=== PATIENT | female | born 2000 | race Two or more races ===

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

== ENCOUNTER 2019-02-10 09:52 | Emergency (ER) | payer MEDICAID ==
[~2019-02-10] VITALS: Ht 157.5 cm; Wt 81.6 kg
[2019-02-10 12:32] VITALS: BP 117/76
[2019-02-10] MEDS ORDERED: IBUPROFEN 800 MG TAB PO ONE (12:45)
== END 2019-02-10 13:07 | disposition home or self-care (01) ==
LOC: ER 09:59
DX: S80.02XD Contusion of left knee, subsequent encounter (principal); W18.39XD Other fall on same level, subsequent encounter
CPT/HCPCS: 73562; 81025

== ENCOUNTER 2024-06-22 14:25 | Emergency (ER) | payer MEDICAID ==
[~2024-06-22] VITALS: Ht 157.5 cm; Wt 92.9 kg
--- NOTE | 2024-06-22 15:19 | ECG ---
[facility] Test Date: 2024-06-22 Test Time: 15:09:53 Pat Name: AMANDA BALL Department: ER Room: Gender: F Non Destructive Evaluation Specialist: GP : 2000 Requested By: LUCAS MCCARTNEY Order Number: [id number] Reading MD: Radu Tanner Measurements Intervals [place] Rate: 92 P: 28 [place]: 141 QRS: -4 QRSD: 91 T: 29 QT: 334 QTc: 414 Interpretive Statements Sinus rhythm Low voltage, precordial leads Electronically Signed On 06-22-2024 16:44:12 PST by Radu Tanner Please click the below link to view image of tracing.
[2024-06-22 15:40] LABS: Urine Bacteria None Seen /hpf (None Seen)
--- NOTE | 2024-06-22 16:07 | DVH ---
EXAM: CT HEAD WITHOUT CONTRAST INDICATION: syncope TECHNIQUE: CT of the head without intravenous contrast. Coronal and sagittal reformatted images are submitted. Radiation Dose : 1. Head: CT Dose: CTDI volume is 59.74 mGy. Dose-length product is 1057.45 mGy*cm The dose indicators for CT are the volume Computed Tomography (CT) Dose Index (CTDIvol) and the Dose Length Product (DLP), and are measured in units of mGy and mGy-cm, respectively. These indicators are not patient dose, but values generated from the CT scanner acquisition factors. The report includes radiation exposure data for exposures received during this examination. All CT scans at this medical facility are performed using dose modulation techniques as appropriate to a performed exam including the following: Automated exposure control was utilized; adjustment of the MA and/or KV according to patient size; and use of iterative reconstruction technique. COMPARISON: None FINDINGS: There is no evidence of acute intracranial hemorrhage, extra-axial collection, mass effect, midline s hift, herniation or hydrocephalus. The ventricles, sulci and cisterns are age appropriate. The roe-white differentiation is intact. The visualized paranasal sinuses and mastoid air cells are clear. No depressed calvarial fracture. The surrounding soft tissues are unremarkable. IMPRESSION: 1. No evidence of acute intracranial abnormality.
[2024-06-22 16:09] LABS: Urine Blood Negative /uL (Negative); Urine Clarity Clear (Clear); Urine Color Light-Yellow (Yellow); Urine Mucus FEW (None Seen); Urine Protein, UAD Negative (Negative); Urine Specific Gravity 1.017 (1.001-1.035); Urine Squamous Epithelial Cell FEW /hpf (<5); Urine Urobilinogen Normal (Negative); Urine WBC 1 /hpf (0 - 5)
--- NOTE | 2024-06-22 16:32 | ED.PDOC ---
History of Present Illness HPI Comments 23 year old female states she was syncopal episode at 5:00 a.m. today. States she got up to go the bathroom when she was in the bathroom she was not remember what happened, she woke up with swelling to her nose and left-sided face. Says she was had syncopal episode in the past, he was five years ago she went and saw a neurologist and he was told he was a vasovagal response. Patient denies any chest pain no shortness a breath denies any headaches. Chief Complaint: Syncope Time Seen by MD: 15:31 Primary Care Provider: PATRICE Reviewed Notes: Nurses Notes Allergies: Coded Allergies: NO KNOWN ALLERGIES (Unverified , 02/02/13) Information Source: Patient Mode of Arrival: Ambulatory Past Medical History PAST MEDICAL HISTORY: Asthma Surgical History: Denies all surgeries TELEPHONE INFORMATION SUPERVISOR History: No Pertinent TELEPHONE INFORMATION SUPERVISOR History Family History Family History: Unknown Social History Smoker: Non-Smoker Alcohol: Occasionally Drugs: Denies Drug Use Lives In: Home Constitutional: denies: chills, diaphoresis, fatigue, fever, malaise, sweats, weakness, others EENTM: denies: blurred vision, double vision, ear bleeding, ear discharge, ear drainage, ear pain, ear ringing, eye pain, eye redness, hearing loss, mouth pain, mouth swelling, nasal discharge, nose bleeding, nose congestion, nose pain, photophobia, tearing, throat pain, throat swelling, voice changes, others Respiratory: denies: cough, hemoptysis, orthopnea, SOB at rest, shortness of breath, SOB with excertion, stridor, wheezing, others Cardiovascular: reports: syncope; denies: chest pain, dizzy spells, diaphoresis, Dyspnea on exertion, edema, irregular heart beat, left arm pain, lightheadedness, palpitations, PND, others Gastrointestinal: denies: abdomen distended, abdominal pain, blood streaked bowels, constipated, diarrhea, dysphagia, difficulty swallowing, hematemesis, melena, nausea, poor appetite, poor fluid intake, rectal bleeding, rectal pain, vomiting, others Genitourinary: denies: abnormal vagina bleeding, burning, dyspareunia, dysuria, flank pain, frequency, hematuria, incontinence, pain, , vagina discharge, urgency, others Neurological: denies: dizziness, fainting, headache, left sided numbness, left sided weakness, numbness, paresthesia, pre-existing deficit, right sided numbness, right sided weakness, seizure, speech problems, tingling, tremors, weakness, others Musculoskeletal: denies: back pain, gout, joint pain, joint swelling, muscle pain, muscle stiffness, neck pain, others Integumetry: denies: bruises, change in color, change in hair/nails, dryness, laceration, lesions, lumps, rash, wounds, others Allergic/Immunocompromised: denies: Difficulty Healing, Frequent Infections, Hives, Itching, others Physical Exam General Appearance: No Apparent Distress, Normal HEENT: Other (Bruising noted at the top of the nasal bridge, no deformity. Patent nares) Neck: Full Range of Motion, Non-Tender, Normal, Normal Inspection Respiratory: Chest Non-Tender, Lungs Clear, No Accessory Muscle Use, No Respiratory Distress, Normal Breath Sounds Cardiovascular: No Edema, No JVD, No Murmur, No Gallop, Normal Peripheral Pulses, Regular Rate/Rhythm Breast Exam: Deferred Gastrointestinal: No Organomegaly, Non Tender, No Pulsatile Mass, Normal Bowel Sounds, Soft Genitalia: Deferred Pelvic: Deferred Rectal: Deferred Extremities: No calf tenderness, Normal capillary refill, Normal inspection, Normal range of motion, Non-tender, No pedal edema Musculoskeletal : Apperance: Normal Neurologic: Alert, lead caregiver II-XII nml as Tested, No Motor Deficits, Normal Affect, Normal Mood, No Sensory Deficits Cerebellar Function: Normal Reflexes: Normal Skin: Dry, Normal Color, Warm Lymphatic: No Adenopathy Was a procedure done? Was a procedure done?: No Differential Dx Considerations may include: TBI, closed head injury, syncopal episode, stroke X-Ray, Labs, Meds, VS Vital Signs Date Time Temp Pulse Resp B/P (MAP) Pulse Ox O2 Delivery O2 Flow Rate FiO2 06/22/24 15:09 92 06/22/24 15:08 98.0 90 15 120/78 (92) 99 Lab Test 06/22/24 15:06 06/22/24 14:45 Range/Units POC Glucose 122 H 70-106 mg/dl Urine Color Light-yellow Yellow Urine Clarity Clear Clear Urine pH 6.0 5.0-9.0 Urine Specific [place] 1.017 1.001-1.035 Urine Protein Negative Negative Urine Ketones Negative Negative Urine Blood Negative Negative /uL Urine Nitrite Negative Negative Urine Bilirubin Negative Negative Urine Urobilinogen Normal Negative mg/dL Urine Leukocyte Esterase Trace Negative /uL Urine RBC 1 0 - 4 /hpf Urine WBC 1 0 - 5 /hpf Urine Squamous Epithelial Cells Few <5 /hpf Urine Bacteria None seen None Seen /hpf Urine Mucus Few None Seen Urine Glucose Normal Normal mg/dL Urine Test Negative Negative X-Ray, Labs, Meds, VS Comment Imaging: X-rays and CT scans were reviewed and interpreted by this provider, cassie garcia shows no fractures and no pathological disease. Pending radiology review. Laboratory: Labs reviewed and interpreted by this provider. No significant abnormalities noted. Patient has prior medical visits reviewed. Med reconciliation performed Vital signs reviewed Time of 1ST Reevaluation: 16:31 Reevaluation 1ST: Improved Patient Education/Counseling: Diagnosis, Treatment, Need For Follow Up (Follow up with the PCP in the next 3-5 days. Follow up in the emergency department if symptoms worsen in the next 24 hours) Family Education/Counseling: No Family Present Departure 1 Departure Time of Disposition: 16:31 Impression: Primary Impression: Vasovagal syncope Disposition: 01 HOME / SELF CARE / HOMELESS Condition: Fair Discharged With: Self Critical Care Note Critical Care Time?: No Stability Stability form required: No Heart Score Heart Score: Heart Score Response (Comments) Value History N/A 0 EKG N/A 0 Age N/A 0 Risk Factors N/A 0 Troponin N/A 0 Total 0 PA RODRIGUEZ Jun 22, 2024 16:32
[2024-06-22 17:32] VITALS: BP 128/72; PULSE 76; RESP 16; TEMP 98.1; O2SAT 98
== END 2024-06-22 17:35 | disposition home or self-care (01) ==
LOC: ER 14:25
DX: R55 Syncope and collapse (principal); J45.909 Unspecified asthma, uncomplicated; Z32.02 Encounter for pregnancy test, result negative
CPT/HCPCS: 70450; 81001; 81025; 82962; 93005

== ENCOUNTER 2024-11-24 14:42 | Inpatient (IN) | payer BC, MEDICAID ==
[~2024-11-24] VITALS: Ht 157.5 cm; Wt 95.6 kg
--- NOTE | 2024-11-24 15:06 | ED.PDOC ---
History of Present Illness HPI Comments 24-year-old female brought in by mother for evaluation of a syncopal episode that occurred last night while using the restroom, associated with nausea, vomiting, subjective fever and chills. Patient states all symptoms started more or less at the same time. She states she experienced some visual distortion j ust prior to fainting. She states she collapsed and hit the left side of her head on the bathroom floor. It is unclear how long she was unconscious, as she was alone. On awakening, she was feeling a severe headache, neck soreness, but denies any other injuries from the fall other than mild bilateral knee discomfort. She states she has been able to ambulate since the episode, however is experiencing body aches and abdominal soreness for multiple episodes of vomiting. She denies any fever, upper respiratory symptoms, sick contacts at home, dysuria, constipation or diarrhea. She states she has had syncopal e pisodes in the past that she was told may have been vasovagal episodes, however this episode seemed different in the she experienced visual distortion prior to fainting. Chief Complaint: Syncope Time Seen by MD: 15:00 Primary Care Provider: VICTORIA Reviewed Notes: Nurses Notes, Medications, Allergies Allergies: Coded Allergies: NO KNOWN ALLERGIES (Unverified , 02/02/13) Home Meds Reported Medications Budesonide (Inhalation) (Budesonide) 0.25 Mg/2 Ml [place], IN BID, ML 11/25/24 Albuterol Sulfate (Albuterol Sulfate Hfa) 108 Mcg/Act Aer, 108 MCG IN PRN, AER 11/25/24 Information Source: Patient, Relative (Mother) Mode of Arrival: Ambulatory Severity: Moderate Timing: Hours Duration: Since onset, Hours Prehospital treatment: None Past Medical History PAST MEDICAL HISTORY: Asthma Surgical History: Denies all surgeries EMERGENCY VETERINARY TECHNICIAN History: No Pertinent EMERGENCY VETERINARY TECHNICIAN History Family History Family History: Reviewed,noncontributory to illness Social History Smoker: Non-Smoker Drugs: Denies Drug Use Lives In: Home Constitutional: reports: weakness, others (leg cramping, sweating, hot/cold flashes, visual distortion); denies: chills, diaphoresis, fatigue, fever, malaise, sweats EENTM: denies: blurred vision, double vision, ear bleeding, ear discharge, ear drainage, ear pain, ear ringing, eye pain, eye redness, hearing loss, mouth pain, mouth swelling, nasal discharge, nose bleeding, nose congestion, nose pain, photophobia, tearing, throat pain, throat swelling, voice changes, others Respiratory: denies: cough, hemoptysis, orthopnea, SOB at rest, shortness of breath, SOB with excertion, stridor, wheezing, others Cardiovascular: reports: syncope; denies: chest pain, dizzy spells, di aphoresis, Dyspnea on exertion, edema, irregular heart beat, left arm pain, lightheadedness, palpitations, PND, others Gastrointestinal: reports: nausea, vomiting; denies: abdomen distended, a bdominal pain, blood streaked bowels, constipated, diarrhea, dysphagia, difficulty swallowing, hematemesis, melena, poor appetite, poor fluid intake, rectal bleeding, rectal pain, others Genitourinary: denies: abnormal vagina bleeding, burning, dyspareunia, dysuria, flank pain, frequency, hematuria, incontinence, pain, , vagina discharge, urgency, others Neurological: denies: dizziness, fainting, headache, left sided numbness, left sided weakness, numbness, paresthesia, pre-existing deficit, right sided numbness, right sided weakness, seizure, speech problems, tingling, tremors, we akness, others Musculoskeletal: reports: neck pain; denies: back pain, gout, joint pain, joint swelling, muscle pain, muscle stiffness, others Integumetry: denies: bruises, change in color, change in hair/nails, dryness, laceration, lesions, lumps, rash, wounds, others Allergic/Immunocompromised: denies: Difficulty Healing, Frequent Infections, Hives, Itching, others Hematologic/Lymphatic: denies: anemia, blood clots, easy bleeding, easy bruising, swollen glands, others Endocrine: denies: excessive hunger, excessive sweating, excessive thirst, excessive urination, flushing, intolerance to cold, intolerance to heat, unexplained weight gain, unexplained weight loss, others Psychiatric: denies: anxiety, bipolar disorder, depression, hopeless, panic disorder, schizophrenia, sleepless, suicidal, others All Other Systems: Reviewed and Negative Physical Exam General Appearance: No Apparent Distress HEENT: Other (Pupils and face symmetric. Moist mucous membranes. Left temporal soft tissue tenderness and mild bruising.) Neck: Full Range of Motion, Normal Inspection, Supple, Other (Midline and paraspinal soft tissue tenderness to palpation) Respiratory: No Accessory Muscle Use, No Respiratory Distress Cardiovascular: No Edema, No JVD, Tachycardia Breast Exam: Deferred Gastrointestinal: Non Tender, Soft Genitalia: Deferred Pelvic: Deferred Rectal: Deferred Extremities: Normal inspection, Normal range of motion, Non-tender, No pedal edema Neurologic: Alert (Oriented x4), Normal Affect, Normal Mood, Other (Ambulatory) Cerebellar Function: NOT DONE Reflexes: NOT DONE Skin: Dry, Normal Color, Warm Lymphatic: NOT DONE Was a procedure done? Was a procedure done?: No EKG EKG : Comments Sinus tach, rate 107, normal intervals, borderline left axis deviation, normal QRS, nonspecific T change. Differential Dx Considerations may include: Vasovagal syncope, concussion, skull fracture, C-spine fracture, ICH, TIA, hypovolemia/dehydration, electrolyte imbalance, viral syndrome, gastroenteritis, gastritis, pancreatitis, UTI, sepsis, arrhythmia, [place], among others X-Ray, Labs, Meds, VS Vital Signs Date Time Temp Pulse Resp B/P (MAP) Pulse Ox O2 Delivery O2 Flow Rate FiO2 11/24/24 17:01 110 18 110/74 11/24/24 16:31 110 18 110/74 11/24/24 16:15 110 18 98 Room Air* 0 21 11/24/24 16:15 98.1 110 18 110/74 (86) 97 98.1 11/24/24 15:05 107 11/24/24 14:42 97.5 120 16 135/80 (98) 98 97.5 Lab Test 11/24/24 16:28 11/24/24 16:15 11/24/24 15:25 11/24/24 15:10 Range/Units Troponin I High Sensitivity 16 13 </=34 ng/L Influenza Type A Antigen Negative Negative Influenza Type B Antigen Negative Negative White Blood Count 5.9 4.4-10.8 10^3/uL Red Blood Count 5.69 H 4.0-5.20 10^6/uL Hemoglobin 16.4 H 12.2-16.2 g/dL Hematocrit 47.8 H 36.0-46.0 % Mean Corpuscular Volume 84.0 80.0-100.0 fL Mean Corpuscular Hemoglobin 28.8 28.0-32.0 pg Mean Corpuscular Hemoglobin Concent 34.3 32.0-36.0 g/dL Red Cell Distribution Width 14.1 11.8-14.3 % Platelet Count 419 140-450 10^3/uL Mean Platelet Volume 7.9 6.9-10.8 fL Neutrophils (%) (Auto) 53.8 37.0-80.0 % Lymphocytes (%) (Auto) 33.7 10.0-50.0 % Monocytes (%) (Auto) 9.9 0.0-12.0 % Eosinophils (%) (Auto) 2.1 0.0-7.0 % Basophils (%) (Auto) 0.5 0.0-2.0 % Neutrophils # (Auto) 3.2 1.6-8.6 10 ^3/uL Lymphocytes # (Auto) 2.0 0.4-5.4 10 ^3/uL Monocytes # (Auto) 0.6 0-1.3 10 ^3/uL Eosinophils # (Auto) 0.1 0-0.8 10 ^3/uL Basophils # (Auto) 0 0-0.2 10 ^3/uL Nucleated Red Blood Cells 0.2 % Sodium Level 141 136-145 mmol/L Potassium Level 4.2 3.5-5.1 mmol/L Chloride Level 106 98-107 mmol/L Carbon Dioxide Level 26 20-31 mmol/L Anion Gap 9 5-15 Blood Urea Nitrogen 11 9-23 mg/dL Creatinine 0.75 0.550-1.02 mg/dL Glomerular Filtration Rate Calc 113 >90 mL/min BUN/Creatinine Ratio 14.7 10.0-20.0 Serum Glucose 105 74-106 mg/dL Lactic Acid Level 1.0 0.4-2.0 mmol/L Calcium Level 9.4 8.7-10.4 mg/dL Total Bilirubin 0.2 0.2-1.0 mg/dL Aspartate Amino Transferase (AST) 21 13-40 U/L Alanine Aminotransferase (ALT) 41 H 7-40 U/L Alkaline Phosphatase 78 46-116 U/L B-Type Natriuretic Peptide 14.19 0-100 pg/mL Total Protein 7.0 5.7-8.2 g/dL Albumin 4.6 3.2-4.8 g/dL Lipase 28 12-53 U/L Urine Color Yellow Yellow Urine Clarity Turbid H Clear Urine pH 6.5 5.0-9.0 Urine Specific [place] 1.021 1.001-1.035 Urine Protein Negative Negative Urine Ketones 1+ H Negative Urine Blood Negative Negative /uL Urine Nitrite Negative Negative Urine Bilirubin Negative Negative Urine Urobilinogen Normal Negative mg/dL Urine Leukocyte Esterase Trace Negative /uL Urine RBC 4 0 - 4 /hpf Urine Microscopic WBC 2 0-5 /HPF Urine Squamous Epithelial Cells Few <5 /hpf Urine Bacteria Few H None Seen /hpf Urine Mucus Few None Seen Urine Glucose Normal Normal mg/dL Urine Test Negative Negative Test 11/24/24 14:53 Range/Units POC Glucose 113 H 70-106 mg/dl Current Medications Medications (Trade) Dose Ordered Sig/Lila Route Start Time Stop Time Status Last Admin Sodium Chloride 2,000 ml @ 1,000 mls/hr Q2H ONCE IV 11/24/24 15:15 11/24/24 17:14 DC 11/24/24 16:31 Ondansetron HCl (Zofran) 4 mg ONCE ONCE IV 11/24/24 15:15 11/24/24 15:16 DC 11/24/24 16:30 Pantoprazole Sodium (Protonix) 40 mg ONCE ONCE IV 11/24/24 15:15 11/24/24 15:16 DC 11/24/24 16:30 Morphine Sulfate 4 mg ONCE ONCE IV 11/24/24 15:15 11/24/24 15:16 DC 11/24/24 16:31 Ceftriaxone Sodium 50 ml @ 100 mls/hr ONCE ONCE IV 11/24/24 17:45 11/24/24 18:14 DC 11/24/24 17:49 Sodium Chloride 1,000 ml @ 60 mls/hr [id number] IV 11/24/24 18:45 11/24/24 20:07 Acetaminophen (Tylenol Tablet) 650 mg Q6HP PRN PO 11/24/24 18:45 11/25/24 01:26 X-Ray, Labs, Meds, VS Comment 24-year-old female with a history of asthma presenting with syncope, nausea, vomiting, headache, subjective fever and chills Vitals remarkable for initial heart rate 120 Exam remarkable for left temporal soft tissue swelling and bruising, midline and paraspinal neck tenderness. No abdominal tenderness. Rhythm strip independently interpreted by me: Sinus rhythm, rate 100, no ectopy. CT head unremarkable C-spine x-rays unremarkable CBC remarkable for hemoglobin 16.4, hematocrit 47.8, CMP unremarkable, lipase normal, BNP and troponin negative, UA abnormal consistent with possible UTI, urine negative, influenza a and B negative Patient treated with the following in the ED: 2 L 0.9 normal saline IV bolus, morphine 4 mg IV, Zofran 4 mg IV, Protonix 40 mg IV, Rocephin 1 g IV On re-evaluation, patient states symptoms have somewhat improved. Vitals were stable. Patient did not appear septic at this time. She is no longer tachycardic after IV hydration. Plan is to admit the patient for IV hydration, emesis control, brain MRI and Neurology evaluation. Time of 1ST Reevaluation: 15:30 Reevaluation 1ST: Unchanged Patient Education/Counseling: Diagnosis, Treatment, Prognosis Family Education/Counseling: Diagnosis, Treatment, Prognosis Sepsis Sepsis Reasesment Focused Exam Orders: Laboratory Tests 11/24/24 15:25: Lactic Acid Level 1.0 Recent Procedure: No On Antibiotic Therapy: No Respiratory Rate >20: No Heart Rate >90: Yes Temp<36 C (96.8 F) or >38.3 C: No SBP <90 or MAP <65 mmHG: No New Acute Mental Status Change: No Is the patient on CPAP, BIPAP,: No IV fluid given: Yes Departure 1 Departure Time of Disposition: 18:15 Impression: Primary Impression: Syncope Additional Impressions: Head injury Nausea and vomiting UTI (urinary tract infection) Disposition: 09 ADMITTED INPATIENT Admit to: Tele Condition: Guarded Critical Care Note Critical Care Time?: No Stability Stability form required: No Heart Score Heart Score: Heart Score Response (Comments) Value History N/A 0 EKG N/A 0 Age N/A 0 Risk Factors N/A 0 Troponin N/A 0 Total 0 I personally scribed for JONI JENKINS MD ([email or web address]) on 11/24/24 at 15:06. Electronically submitted by Robert Cadena ([email or web address]). JONI JENKINS MD Nov 24, 2024 15:06
[2024-11-24 16:02] LABS: Basophils # (auto) 0 10 ^3/uL (0-0.2); Basophils % (auto) 0.5 % (0.0-2.0); Eosinophils # (auto) 0.1 10 ^3/uL (0-0.8); Eosinophils % (auto) 2.1 % (0.0-7.0); Hematocrit 47.8 % (36.0-46.0); Hemoglobin 16.4 g/dL (12.2-16.2); Lymphocytes % (auto) 33.7 % (10.0-50.0); Mean Corpuscular Hemoglobin 28.8 pg (28.0-32.0); Mean Corpuscular Hgb Conc. 34.3 g/dL (32.0-36.0); Monocytes # (auto) 0.6 10 ^3/uL (0-1.3); Monocytes % (auto) 9.9 % (0.0-12.0); Neutrophils # (auto) 3.2 10 ^3/uL (1.6-8.6); Neutrophils % (auto) 53.8 % (37.0-80.0); Nucleated Red Blood Cells % 0.2 %; Platelet Count (auto) 419 10^3/uL (140-450); Red Blood Cells 5.69 10^6/uL (4.0-5.20); Red Cell Distribution Width 14.1 % (11.8-14.3); White Blood Cell 5.9 10^3/uL (4.4-10.8)
[2024-11-24 16:13] LABS: Albumin 4.6 g/dL (3.2-4.8); Alkaline Phosphatase 78 U/L (46-116); Anion Gap 9 (5-15); Aspartate Aminotransferase 21 U/L (13-40); BUN/Creatinine Ratio 14.7 (10.0-20.0); Blood Urea Nitrogen 11 mg/dL (9-23); Calcium 9.4 mg/dL (8.7-10.4); Carbon Dioxide 26 mmol/L (20-31); Chloride 106 mmol/L (98-107); Glucose 105 mg/dL (74-106); Lipase 28 U/L (12-53); Potassium 4.2 mmol/L (3.5-5.1); Sodium 141 mmol/L (136-145)
[2024-11-24 16:15] VITALS: PULSE 110; RESP 18; O2SAT 98
[2024-11-24 16:16] LABS: Alanine Aminotransferase 41 U/L (7-40); Bilirubin, Total 0.2 mg/dL (0.2-1.0)
[2024-11-24] MEDS: PANTOPRAZOLE 40 MG/10 ML VIAL INJ IV ONE (16:30)
[2024-11-24] MEDS: ONDANSETRON HCL 4 MG/2 ML VIAL IV ONE (16:30)
[2024-11-24] MEDS: SODIUM CHLORIDE 0.9% 2,000 ML IV ONE (16:31)
[2024-11-24] MEDS: MORPHINE SULFATE 4 MG/ML SYR/VIAL IV ONE (16:31)
[2024-11-24 16:37] LABS: Urine Bacteria FEW /hpf (None Seen); Urine Blood Negative /uL (Negative); Urine Clarity Turbid (Clear); Urine Color Yellow (Yellow); Urine Mucus FEW (None Seen); Urine Protein, UAD Negative (Negative); Urine Specific Gravity 1.021 (1.001-1.035); Urine Squamous Epithelial Cell FEW /hpf (<5); Urine Urobilinogen Normal (Negative); Urine WBC 2 /HPF (0-5); Urine pH 6.5 (5.0-9.0)
[2024-11-24 16:57] LABS: Rapid Influenza A Negative (Negative); Rapid Influenza B Negative (Negative)
--- NOTE | 2024-11-24 17:09 | DVH ---
EXAM: CT HEAD WITHOUT CONTRAST INDICATION: syncope, L head trauma TECHNIQUE: CT of the head without intravenous contrast. Radiation Dose : 1. Head: CT Dose: CTDI volume is 60.57 mGy. Dose-length product is 1072.26 mGy*cm The dose indicators for CT are the volume Computed Tomography (CT) Dose Index (CTDIvol) and the Dose Length Product (DLP), and are measured in units of mGy and mGy-cm, respectively. These indicators are not patient dose, but values generated from the CT scanner acquisition factors. The report includes radiation exposure data for exposures received during this examination. COMPARISON: CT HEAD WITHOUT CONTRAST on DOS: 06/22/24 FINDINGS: There is no evidence of acute intracranial hemorrhage, extra-axial collection, mass effect, midline s hift, herniation or hydrocephalus. The ventricles, sulci and cisterns are age appropriate. The roe-white differentiation is intact. Patchy periventricular and subcortical white matter hypoattenuation is nonspecific but may be related to small vessel ischemic disease. The visualized paranasal sinuses and mastoid air cells are clear. The surrounding soft tissues and osseous structures are unremarkable. MRI recommended if clinical symptoms persist. IMPRESSION: 1. No acute intracranial abnormality. Radiation optimization: All CT scans at this facility use at least one of these dose optimization hannah hniques: automated exposure control mA and/or kV adjustment per patient size (includes targeted exam s where dose is matched to clinical indication) or iterative reconstruction.
[2024-11-24] MEDS: cefTRIAXone 1GM/50ML D5W 50 ML IV ONE (17:49)
--- NOTE | 2024-11-24 18:25 | DVH ---
Indication: neck pain s/p fall Technique: 3 views cervical spine Comparison: None FINDINGS/IMPRESSION: Cervical vertebral body heights maintained. Mild multilevel disc space narrowing. No prevertebral merissa ma. Facet articulations intact.
[2024-11-24] MEDS ORDERED: HYDROcodone-ACET 5/325MG TAB PO PRN (18:45)
[2024-11-24] MEDS ORDERED: ONDANSETRON HCL 4 MG/2 ML VIAL IV PRN (18:45)
[2024-11-24] MEDS ORDERED: IPRATROPIUM BROM 0.5 MG/2.5ML INH SOL NEB PRN (18:45)
[2024-11-24] MEDS ORDERED: ALBUTEROL SULF 2.5 MG/0.5ML(0.5%) NEB SOLN NEB PRN (18:45)
[2024-11-24] MEDS ORDERED: DOCUSATE SOD 100 MG CAP PO PRN (18:45)
--- NOTE | 2024-11-24 19:23 | DVHHP2 ---
History of Present Illness Reason for Visit: Syncope History of Present Illness The patient is a 24-year-old female with past medical history of asthma, syncope, and brain cysts who presented to [facility] ED for evaluation of syncopal episode associated with nausea, vomiting, and chills. She states she collapsed and hit the left side of her head on the bathroom floor. It is unclear how long she was unconscious, as she was alone. On awakening on the floor, she was feeling severe headache, neck soreness, but denies any other injuries from the fall other than mild bilateral knee discomfort. Patient reports she was seen at [facility] for similar symptoms with diagnosis of mild brain cysts by Neurology. Patient was seen and evaluated in the ED, laboratory data shows WBC 5.9, platelets 419, sodium 141, potassium 4.2, BUN 11, creatinine 0.75, glucose 105, AST 21, ALT 41, BNP 14.19, lipase 28, troponin 16, blood pressure 110/74, heart rate 110, temperature 98.1 F, O2 saturation 97% on room air. Head CT showed no acute intracranial abnormality. Past Medical History Asthma, syncope, Brain cyst Past Surgical History Denies all surgeries Family History Reviewed, noncontributory to the management of this case. Past Social History The patient lives at home, denies smoking, alcohol or illicit drugs abuse. Review of Systems Constitutional: Yes: Weakness; No: Fever, Chills, Sweats, Malaise, Other Eyes: No: Pain, Vision change, Conjunctivae inflammation, Eyelid inflammation, Other, Redness ENT: No: Ear pain, Ear discharge, Nose pain, Nose discharge, Nose congestion, Mouth pain, Mouth swelling, Throat pain, Throat swelling, Other Respiratory: No: Cough, Dry, Shortness of breath, SOB with excertion, Wheezing, Hemoptysis, Pleuritic Pain, Sputum, Wheezing, Other Cardiovascular: Other (Syncope); No: Chest Pain, Palpitations, Orthopnea, Paroxysmal Noc. Dyspnea, Edema, Lt Headedness Gastrointestinal: Nausea, Vomiting; No: Abdominal Pain, Diarrhea, Constipation, Melena, Hematochezia, Other Genitourinary: No Dysuria, No Frequency, No Incontinence, No Hematuria, No Retention, No Other Musculoskeletal: other (Knee pain), neck pain; No: shoulder pain, arm pain, back pain, hand pain, leg pain, foot pain Skin: No: Rash, Lesions, Jaundice, Bruising, Other Neurological: No: Weakness, Numbness, Incoordination, Change in speech, Confusion, Seizures, Other Allergies: Coded Allergies: NO KNOWN ALLERGIES (Unverified , 02/02/13) Medications Current Medications Medications Dose Ordered Sig/Lila Route Start Time Stop Time Status Last Admin Dose Admin Ceftriaxone Sodium 50 ml @ 100 mls/hr DAILY@09 IV 11/25/24 09:00 Pantoprazole Sodium 40 mg DAILY IV 11/25/24 10:00 Sodium Chloride 1,000 ml @ 60 mls/hr [id number] IV 11/24/24 18:45 Acetaminophen/ Hydrocodone Bitart 1 tab Q4HP PRN PO 11/24/24 18:45 Ondansetron HCl 4 mg Q4HP PRN IV 11/24/24 18:45 Docusate Sodium 100 mg BIDPRN PRN PO 11/24/24 18:45 Acetaminophen 650 mg Q6HP PRN PO 11/24/24 18:45 Albuterol 2.5 mg Q4HPRN PRN NEB 11/24/24 18:45 Ipratropium [place] 0.5 mg Q4HPRN PRN NEB 11/24/24 18:45 Exam Vital Signs Vital Signs Date Time Temp Pulse Resp B/P (MAP) Pulse Ox O2 Delivery O2 Flow Rate FiO2 11/24/24 17:01 110 18 110/74 11/24/24 16:15 98 Room Air* 0 21 11/24/24 16:15 98.1 98.1 General Appearance: Alert, Oriented X3, Cooperative, No acute distress HEENT: Atraumatic, PERRLA, EOMI, Mucous membr. moist/pink Respiratory: Clear to auscultation, Normal air movement Cardiovascular: Regular rate, Normal S1, Normal S2, No murmurs Abdominal: Normal bowel sounds, Soft, No tenderness, No hepatospenomegaly, No masses Extremities: No clubbing, No cyanosis, No edema, Normal pulses, No tenderness/swelling Skin: No rashes, No breakdown, No significant lesion Neuro: Normal speech, Normal tone, Sensation intact, Cranial nerves 3-12 NL, Reflexes 2+, Other (Syncope) Psych/Mental Status: Mental status NL, Mood NL Labs/Xrays Labs Test 11/24/24 16:28 11/24/24 16:15 11/24/24 15:25 11/24/24 15:10 Range/Units Troponin I High Sensitivity 16 </=34 ng/L Influenza Type A Antigen Negative Negative Influenza Type B Antigen Negative Negative White Blood Count 5.9 4.4-10.8 10^3/uL Red Blood Count 5.69 H 4.0-5.20 10^6/uL Hemoglobin 16.4 H 12.2-16.2 g/dL Hematocrit 47.8 H 36.0-46.0 % Mean Corpuscular Volume 84.0 80.0-100.0 fL Mean Corpuscular Hemoglobin 28.8 28.0-32.0 pg Mean Corpuscular Hemoglobin Concent 34.3 32.0-36.0 g/dL Red Cell Distribution Width 14.1 11.8-14.3 % Platelet Count 419 140-450 10^3/uL Mean Platelet Volume 7.9 6.9-10.8 fL Neutrophils (%) (Auto) 53.8 37.0-80.0 % Lymphocytes (%) (Auto) 33.7 10.0-50.0 % Monocytes (%) (Auto) 9.9 0.0-12.0 % Eosinophils (%) (Auto) 2.1 0.0-7.0 % Basophils (%) (Auto) 0.5 0.0-2.0 % Neutrophils # (Auto) 3.2 1.6-8.6 10 ^3/uL Lymphocytes # (Auto) 2.0 0.4-5.4 10 ^3/uL Monocytes # (Auto) 0.6 0-1.3 10 ^3/uL Eosinophils # (Auto) 0.1 0-0.8 10 ^3/uL Basophils # (Auto) 0 0-0.2 10 ^3/uL Nucleated Red Blood Cells 0.2 % Sodium Level 141 136-145 mmol/L Potassium Level 4.2 3.5-5.1 mmol/L Chloride Level 106 98-107 mmol/L Carbon Dioxide Level 26 20-31 mmol/L Anion Gap 9 5-15 Blood Urea Nitrogen 11 9-23 mg/dL Creatinine 0.75 0.550-1.02 mg/dL Glomerular Filtration Rate Calc 113 >90 mL/min BUN/Creatinine Ratio 14.7 10.0-20.0 Serum Glucose 105 74-106 mg/dL Lactic Acid Level 1.0 0.4-2.0 mmol/L Calcium Level 9.4 8.7-10.4 mg/dL Total Bilirubin 0.2 0.2-1.0 mg/dL Aspartate Amino Transferase (AST) 21 13-40 U/L Alanine Aminotransferase (ALT) 41 H 7-40 U/L Alkaline Phosphatase 78 46-116 U/L B-Type Natriuretic Peptide 14.19 0-100 pg/mL Total Protein 7.0 5.7-8.2 g/dL Albumin 4.6 3.2-4.8 g/dL Lipase 28 12-53 U/L Urine Color Yellow Yellow Urine Clarity Turbid H Clear Urine pH 6.5 5.0-9.0 Urine Specific [place] 1.021 1.001-1.035 Urine Protein Negative Negative Urine Ketones 1+ H Negative Urine Blood Negative Negative /uL Urine Nitrite Negative Negative Urine Bilirubin Negative Negative Urine Urobilinogen Normal Negative mg/dL Urine Leukocyte Esterase Trace Negative /uL Urine RBC 4 0 - 4 /hpf Urine Microscopic WBC 2 0-5 /HPF Urine Squamous Epithelial Cells Few <5 /hpf Urine Bacteria Few H None Seen /hpf Urine Mucus Few None Seen Urine Glucose Normal Normal mg/dL Urine Test Negative Negative Test 11/24/24 14:53 Range/Units POC Glucose 113 H 70-106 mg/dl PATIENT: AMANDA BALL ACCT: [id number] UNIT: [id number] : 2000 LOC: ER ROOM / BED: / AGE / SEX: 24 / F ADM STATUS: REG ER SERVICE 1502 ORDERING PHYSICIAN: JONI JENKINS MD PROCEDURE(s): HWOCT - HEAD WITHOUT CONTRAST REASON: syncope, L head trauma ORDER NUMBER(s): [id number], ACCESSION NUMBER(s): [id number] EXAM: CT HEAD WITHOUT CONTRAST INDICATION: syncope, L head trauma TECHNIQUE: CT of the head without intravenous contrast. Radiation Dose: 1. Head: CT Dose: CTDI volume is 60.57 mGy. Dose-length product is 1072.26 mGy*cm The dose indicators for CT are the volume Computed Tomography (CT) Dose Index (CTDIvol) and the Dose Length Product (DLP), and are measured in units of mGy and mGy-cm, respectively. These indicators are not patient dose, but values generated from the CT scanner acquisition factors. The report includes radiation exposure data for exposures received during this examination. COMPARISON: CT HEAD WITHOUT CONTRAST on DOS: 06/22/24 FINDINGS: There is no evidence of acute intracranial hemorrhage, extra-axial collection, mass effect, midline shift, herniation or hydrocephalus. The ventricles, sulci and cisterns are age appropriate. The roe-white differentiation is intact. Patchy periventricular and subcortical white matter hypoattenuation is nonspecific but may be related to small vessel ischemic disease. The visualized paranasal sinuses and mastoid air cells are clear. The surrounding soft tissues and osseous structures are unremarkable. MRI recommended if clinical symptoms persist. IMPRESSION: 1. No acute intracranial abnormality. ORDERING PHYSICIAN: JONI JENKINS MD PROCEDURE(s): CERV2 - CERVICAL SPINE 3V REASON: neck pain s/p fall ORDER NUMBER(s): [id number], ACCESSION NUMBER(s): [id number] Indication: neck pain s/p fall Technique: 3 views cervical spine Comparison: None FINDINGS/IMPRESSION: Cervical vertebral body heights maintained. Mild multilevel disc space narrowing. No prevertebral edema. Facet articulations intact. Assessment/Plan Assessment/Plan Syncope and collapse Head injury Nausea and vomiting UTI (urinary tract infection) Plan 1. Admit to telemetry unit 2. Breathing treatment 3. Pain control management 4. IV antibiotic management 5. Management of fluids and electrolytes 6. Consultation for neurology 7. Diagnostic test head CT 8. DVT prophylaxis on SCDs 9. Repeat labs CBC, CMP in a.m. 10. Home medication reviewed and reconciled 11. Continue with current medical management 12. Treatment plan discussed with patient and RN. Patient verbalized understanding. Plan discussed with: Patient, Other (RN) My Orders Orders - MIMI FORD DNP Procedure Category Date Status Time Ceftriaxone 1gm/50ml PHA 11/25/24 In Process D5w (Rocephin) 09:00 Pantoprazole PHA 11/25/24 In Process (Protonix) 10:00 Allergies GOOD 11/24/24 In Process 18:34 Code Status CODE 11/24/24 Transmitted 18:34 Sodium Chloride 0.9% PHA 11/24/24 In Process 18:45 Oxygen Per Hour RT 11/24/24 Transmitted 18:34 Hydrocodone-Acet PHA 11/24/24 In Process 5/325mg Tab ([place] 18:45 Ondansetron Hcl PHA 11/24/24 In Process (Zofran) 18:45 Docusate Sodium PHA 11/24/24 In Process Capsule (Colace 18:45 Fall Risk Precautions GOOD 11/24/[address] 18:34 Complete Blood Count LAB 11/25/24 Verified 04:00 Comprehensive LAB 11/25/24 Verified Metabolic Panel 04:00 Cardiac DIET 11/25/24 Transmitted Diet-2gna,Lofat,Lochol Breakfast Condition: Serious GOOD 11/24/24 In Process 18:34 Acetaminophen Tablet PHA 11/24/24 In Process (Tylenol Tablet) 18:45 Bedrest With Bathroom GOOD 11/24/24 In Process Privileg 18:34 Maintain Bed Rest GOOD 11/24/24 In Process 18:34 Sequential GOOD 11/24/24 In Process Compression Device Albuterol Medneb PHA 11/24/24 In Process (Ventolin Medneb) 18:45 Ipratropium Medneb PHA 11/24/24 In Process (Atrovent Medneb) 18:45 Admit ADMIT 11/24/24 Verified 19:22 Nitroglycerin PHA 11/24/24 Verified Sublingual (Ntrostat 19:30 Morphine Sulfate PHA 11/24/24 Verified Injection 19:30 Stat Ekg For Chest GOOD 11/24/24 Verified Pain 19:22 Notify Md Of Changes GOOD 11/24/24 Verified From Base 19:22 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
[2024-11-24 19:26] VITALS: PULSE 91; RESP 20; O2SAT 97
[2024-11-24] MEDS ORDERED: NITROGLYCERIN 0.4 MG SL TAB SL PRN (19:30)
[2024-11-24] MEDS ORDERED: MORPHINE SULFATE INJ 2 MG/ml SYRG IV PRN (19:30)
[2024-11-24] MEDS: ACETAMINOPHEN 325 MG TAB PO PRN (20:06)
[2024-11-24] MEDS: SODIUM CHLORIDE 0.9% 1,000 ML IV SCH (20:07)
[2024-11-24 22:05] VITALS: O2SAT 96
[2024-11-24 23:01] VITALS: PULSE 91; RESP 18; O2SAT 98
[2024-11-24 23:12] VITALS: BP 106/62; PULSE 96; RESP 21; TEMP 98.5; O2SAT 96
[2024-11-25] VITALS (10 sets, daily range): BP systolic 92–121; BP diastolic 50–74; PULSE 61–97; RESP 16–20; TEMP 98–98.8; O2SAT 97–100
[2024-11-25] MEDS ORDERED: BUDE0.253 IN (00:10)
[2024-11-25] MEDS ORDERED: ALBU108A5 IN (00:10)
[2024-11-25 05:19] LABS: Basophils # (auto) 0 10 ^3/uL (0-0.2); Basophils % (auto) 0.5 % (0.0-2.0); Eosinophils # (auto) 0.2 10 ^3/uL (0-0.8); Eosinophils % (auto) 2.6 % (0.0-7.0); Hematocrit 42.6 % (36.0-46.0); Hemoglobin 14.3 g/dL (12.2-16.2); Lymphocytes # (auto) 3.1 10 ^3/uL (0.4-5.4); Lymphocytes % (auto) 44.9 % (10.0-50.0); Mean Corpuscular Hemoglobin 28.5 pg (28.0-32.0); Mean Corpuscular Hgb Conc. 33.6 g/dL (32.0-36.0); Mean Corpuscular Volume 84.8 fL (80.0-100.0); Monocytes # (auto) 0.8 10 ^3/uL (0-1.3); Neutrophils # (auto) 2.9 10 ^3/uL (1.6-8.6); Nucleated Red Blood Cells % 0.3 %; Platelet Count (auto) 389 10^3/uL (140-450); Red Blood Cells 5.02 10^6/uL (4.0-5.20); Red Cell Distribution Width 14.1 % (11.8-14.3)
[2024-11-25 05:35] LABS: Alanine Aminotransferase 35 U/L (7-40); Alkaline Phosphatase 66 U/L (46-116); Anion Gap 6 (5-15); Aspartate Aminotransferase 19 U/L (13-40); BUN/Creatinine Ratio 11.7 (10.0-20.0); Blood Urea Nitrogen 9 mg/dL (9-23); Calcium 8.6 mg/dL (8.7-10.4); Carbon Dioxide 27 mmol/L (20-31); Chloride 107 mmol/L (98-107); Glucose 96 mg/dL (74-106); Potassium 3.8 mmol/L (3.5-5.1); Sodium 140 mmol/L (136-145); Total Protein 6.3 g/dL (5.7-8.2)
[2024-11-25 05:36] LABS: Bilirubin, Total 0.2 mg/dL (0.2-1.0)
[2024-11-25] MEDS: PANTOPRAZOLE 40 MG/10 ML VIAL INJ IV SCH (08:37)
[2024-11-25] MEDS: cefTRIAXone 1GM/50ML D5W 50 ML IV SCH (08:37)
--- NOTE | 2024-11-25 12:10 | DVHPN2 ---
Subjective 24-year-old female had a syncopal episode at home after she was having an episode of vomiting and diarrhea when she woke up in the morning with frequent vomiting she went to the restroom and after she vomited few times she had a syncopal episode and then she woke up and then she was still having more vomiting and diarrhea She says this happened before with other triggers but this is the 1st time it happened with the nausea and vomiting and diarrhea She says she has a history of brain cysts in the past Changes from previous H/P or p: Changes Eyes: No Pain, No Vision change, No Conjunctivae inflammation, No Eyelid inflammation, No Other, No Redness ENT: No Ear pain, No Ear discharge, No Nose pain, No Nose discharge, No Nose congestion, No Mouth pain, No Mouth swelling, No Throat pain, No Throat swelling, No Other Cardiovascular: No Chest Pain, No Palpitations, No Orthopnea, No Paroxysmal Noc. Dyspnea, No Edema, No Lt Headedness; Other (Syncope) Respiratory: No Cough, No Dry, No Shortness of breath, No SOB with excertion, No Wheezing, No Hemoptysis, No Pleuritic Pain, No Sputum, No Other Gastrointestinal: Nausea, Vomiting; No Abdominal Pain, No Diarrhea, No Constipation, No Melena, No Hematochezia, No Other Genitourinary: No Dysuria, No Frequency, No Incontinence, No Hematuria, No Retention, No Other Musculoskeletal: other (Knee pain), neck pain; No shoulder pain, No arm pain, No back pain, No hand pain, No leg pain, No foot pain Skin: No Rash, No Lesions, No Jaundice, No Bruising, No Other Objective Vitals Vital Signs Date Time Temp Pulse Resp B/P (MAP) Pulse Ox O2 Delivery O2 Flow Rate FiO2 11/25/24 09:00 98.4 78 20 110/72 (85) 99 98.4 11/25/24 08:44 Room Air* 0 21 Intake/Output Intake and Output 11/25/24 07:00 Intake Total 1500 ml Balance 1500 ml Intake Oral 440 ml IV Total 1060 ml # Voids 1 General Appearance: Alert, Oriented X3, Cooperative, No acute distress Lungs: Clear to auscultation, Normal air movement Cardiovascular: Regular rate, Normal S1 Abdomen: Normal bowel sounds, Soft, No tenderness Extremities: No edema Medications Current Medications Medications Dose Ordered Sig/Lila Route Start Time Stop Time Status Last Admin Dose Admin Ceftriaxone Sodium 50 ml @ 100 mls/hr DAILY@09 IV 11/25/24 09:00 11/25/24 08:37 100 MLS/HR Pantoprazole Sodium 40 mg DAILY IV 11/25/24 10:00 11/25/24 08:37 40 MG Sodium Chloride 1,000 ml @ 60 mls/hr [id number] IV 11/24/24 18:45 11/24/24 20:07 60 MLS/HR Acetaminophen/ Hydrocodone Bitart 1 tab Q4HP PRN PO 11/24/24 18:45 Ondansetron HCl 4 mg Q4HP PRN IV 11/24/24 18:45 Docusate Sodium 100 mg BIDPRN PRN PO 11/24/24 18:45 Acetaminophen 650 mg Q6HP PRN PO 11/24/24 18:45 11/25/24 01:26 650 MG Albuterol 2.5 mg Q4HPRN PRN NEB 11/24/24 18:45 Ipratropium [place] 0.5 mg Q4HPRN PRN NEB 11/24/24 18:45 Nitroglycerin 0.4 mg Q5MINP PRN SL 11/24/24 19:30 Morphine Sulfate 2 mg Q30M PRN IV 11/24/24 19:30 Laboratory Results Laboratory Tests 11/25/24 05:00 Chemistry Test 11/24/24 15:25 11/25/24 05:00 Albumin 4.6 g/dL (3.2-4.8) 4.0 g/dL (3.2-4.8) Calcium Level 9.4 mg/dL (8.7-10.4) 8.6 mg/dL (8.7-10.4) L Total Protein 7.0 g/dL (5.7-8.2) 6.3 g/dL (5.7-8.2) Lipid panel Test 11/24/24 15: Lipase 28 U/L (12-53) Cardiac Markers Test 11/24/24 15:25 B-Type Natriuretic Peptide 14.19 pg/mL (0-100) LFT Test 11/24/24 15:25 11/25/24 05:00 Alanine Aminotransferase (ALT) 41 U/L (7-40) H 35 U/L (7-40) Alkaline Phosphatase 78 U/L (46-116) 66 U/L (46-116) Aspartate Amino Transferase (AST) 21 U/L (13-40) 19 U/L (13-40) Total Bilirubin 0.2 mg/dL (0.2-1.0) 0.2 mg/dL (0.2-1.0) Urinalysis Test 11/24/24 15:10 Urine Color Yellow (Yellow) Urine Clarity Turbid (Clear) H Urine pH 6.5 (5.0-9.0) Urine Specific [place] 1.021 (1.001-1.035) Urine Protein Negative (Negative) Urine Ketones 1+ (Negative) H Urine Blood Negative /uL (Negative) Urine Nitrite Negative (Negative) Urine Bilirubin Negative (Negative) Urine Urobilinogen Normal mg/dL (Negative) Urine Leukocyte Esterase Trace /uL (Negative) Urine RBC 4 /hpf (0 - 4) Urine Microscopic WBC 2 /HPF (0-5) Urine Squamous Epithelial Cells Few /hpf (<5) Urine Bacteria Few /hpf (None Seen) H Urine Mucus Few (None Seen) Urine Glucose Normal mg/dL (Normal) Urine Test Negative (Negative) Microbiology Microbiology Date/Time Source Procedure Growth Status 11/24/24 15:10 Voided Urine Urine Culture - Preliminary Resulted Assessment/Plan Assessment/Plan Syncope, most likely vasovagal Nausea and vomiting, resolved Nausea and vomiting most likely due to acute gastroenteritis Acute gastroenteritis, most likely viral History of brain cysts Asthma UTI Plan Continue IV fluids Rocephin for UTI Get MRI of the brain Carotid Doppler Echocardiogram Neurology consult is pending Monitor the patient closely and the rest of the management will depend on the hospital course Full code Advance directives discussed for 17 minutes Plan discussed with: Patient My Orders Orders - JOSEPH FERRARI MD Procedure Category Date Status Time Brain Head Wo Contrast MRI 11/25/24 Verified 12:04 Carotid Duplx W Color US 11/25/24 Verified DOP 12:04 Echo 2d Mode Cardiac US 11/25/24 Verified DOP 12:04 Date of Service: Nov 25, 2024 Billing Provider: JOSEPH FERRARI MD Common Visit Codes: [id number] INP/OBS CARE(HIGH) Secondary Visit Codes: [id number] CARE PLAN 30 MINUTES JOSEPH FERRARI MD Nov 25, 2024 12:10
--- NOTE | 2024-11-25 13:15 | DVH ---
EXAMINATION: MRI BRAIN HEAD WO CONTRAST INDICATION: head injury COMPARISON: CT head 11/24/2024 TECHNIQUE: Multiplanar, multisequence magnetic resonance imaging of the brain was performed without t he use of intravenous contrast. FINDINGS: There is no restricted diffusion. The roe and white matter signal is appropriate. There is no eviden ce of hemorrhage, mass, mass effect or midline shift. There is no hydrocephalus or extra-axial fluid collection. The visualized intracranial vasculature demonstrates appropriate flow-voids. There is a 1 0 mm pineal cyst. The sagittal midline structures otherwise appear unremarkable. The craniocervical j unction is within normal limits. The calvarium demonstrates normal marrow signal. The paranasal sinus es and mastoid air cells are clear. IMPRESSION: 1. There is no acute intracranial process. 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 HS:Y
--- NOTE | 2024-11-25 17:22 | DVH ---
US CAROTID DOPPLER CLINICAL INDICATION: syncope TECHNIQUE: Multiple grayscale, color Doppler and spectral Doppler ultrasound images were obtained thr oughout both carotid systems. COMPARISON: None FINDINGS: RIGHT: CCA PSV: 114 cm/s ECA PSV: 107 cm/s ICA PSV: 166 cm/s ICA EDV: 26 cm/s ICA/CCA Ratio: 1.5 Vertebral artery: Patent, antegrade flow. Grayscale images demonstrate no significant plaque or visible stenosis. Spectral analysis demonstrate s no hemodynamically significant CCA or ICA stenosis. LEFT: CCA PSV: 120 cm/s ECA PSV: 118 cm/s ICA PSV: 169 cm/s ICA EDV: 28 cm/s ICA/CCA Ratio: 1.4 Vertebral artery: Patent, antegrade flow. Grayscale images demonstrate no significant plaque or visible stenosis. Spectral analysis demonstrate s no hemodynamically significant CCA or ICA stenosis. IMPRESSION: Increased velocities in the bilateral proximal internal carotid arteries corresponding to 50-69% sten osis by velocity.
[2024-11-26 01:00] VITALS: BP 100/67; PULSE 89; RESP 20; TEMP 98.3; O2SAT 97
[2024-11-26 05:00] VITALS: BP 112/67; PULSE 62; RESP 20; TEMP 97.2; O2SAT 99
--- NOTE | 2024-11-26 07:24 | ECG ---
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
[2024-11-26 08:00] VITALS: PULSE 73; RESP 18
[2024-11-26 09:00] VITALS: BP 117/72; PULSE 90; RESP 20; TEMP 98; O2SAT 98
[2024-11-26 09:14] VITALS: O2SAT 97
[2024-11-26] MEDS ORDERED: IOHEXOL 350 MG/ML 100ML IJ ONE (10:38)
--- NOTE | 2024-11-26 11:52 | DVH ---
Procedure: CT ANGIO HEAD/Neck HISTORY: syncope Comparison Study: CT head 11/25/2023 Exam Date:11/26/2024 10:33 AM TECHNIQUE: CTA head without and with intravenous contrast. CTA neck with intravenous contrast. 3D cassie Finsphere postprocessing was performed and images were used for interpretation and reporting. 100 cc of Omni paque 300 contrast was injected intravenously. All CT scans at this medical facility are performed using dose modulation techniques as appropriate t o a performed exam including the following: Automated exposure control was utilized; adjustment of th e MA and/or KV according to patient size; and use of iterative reconstruction technique. Radiation Dose : CT Dose: CTDI volume is 22 mGy. Dose-length product is 1297 mGy*cm FINDINGS: CTA head: The intracranial internal carotid, anterior and middle cerebral arteries demonstrate normal caliber w ithout hemodynamically significant stenosis or occlusion. The vertebral, basilar, and posterior cerebral arteries also demonstrate normal caliber without hemod ynamically significant stenosis or occlusion. There is no evidence of intracranial arterial aneurysm or arteriovenous malformation. The early parenchymal enhancement is grossly unremarkable. CTA neck: The visualized thoracic aortic arch and proximal great vessels are unremarkable. The bilateral common, internal and external carotid arteries are patent without hemodynamically signi ficant stenosis. The cervical segments of the right and left vertebral arteries are patent without flow-limiting steno sis or obvious dissection.. The left vertebral artery is dominant. The neck soft tissues appear within normal limits. Lung apices are clear. IMPRESSION: 1. No hemodynamically significant stenosis, proximal occlusion or aneurysm in the intracranial arteri es. 2. No hemodynamically significant stenosis in the cervical segments of the carotid and vertebral anam pan. HS:Y
[2024-11-26 12:32] VITALS: BP 117/71; PULSE 80; RESP 20; TEMP 98.1; O2SAT 99
--- NOTE | 2024-11-26 14:08 | DVHSR ---
APPROVED REPORT EXAM: Two-dimensional and M-mode echocardiogram with Doppler and color Doppler. Blood Pressure: 110/72 mmHg INDICATION Syncope RISK FACTORS Obesity: Height: 5'2, Weight: 210 DIMENSIONS LVDd3.8 (3.8-5.7cm)LA (2D)3.6 (1.9-4.0cm)Aortic Root2.7 (2.0-3.7cm) LVDs2.8 (2.5-4.0cm)LA (MM) (1.9-4.0cm)Aortic Cusp Exc1.9 (1.5-2.0cm) EF (%) 55.0 (55-70%)Rt. Atrium2.7 (1.9-4.0cm)Asc. Aorta cm IVSd0.7 (0.7-1.1cm)RV (D)3.0 (1.8-2.4cm) PWd0.8 (0.7-1.1cm) Mitral Valve MitralMitral Stenosis E wave0.81m/sMV Mean GR.mmHg A wave0.86m/sMV Peak GR.mmHg E/A ratio0.92D MVAcm2 DECEL [id number] 1/2 Timems Aortic Valve Aortic ValveAortic Stenosis V11.10m/Ania Mean GR.4mmHg V21.35m/Ania Peak GR.7mmHg LVOT Diameter2.0 (1.8-2.4cm)Doppler AVA2.56cm2 Pulmonic Valve V20.98m/s Tricuspid Valve TR Velocity2.23m/s [id number] Conclusion Technically good study. Sinus rhythm. Normal chamber sizes. Normal valves. EF of 60% with normal RV function. Dopplers unremarkable. No pericardial effusion masses or vegetations.
[2024-11-26] MEDS ORDERED: NITR-87 PO (14:31)
--- NOTE | 2024-11-26 20:55 | DVHDS2 ---
Discharge Summary Date of Admission Nov 24, 2024 at 19:22 Date of Discharge: Nov 26, 2024 Labs/Diagnostic Data: Laboratory Results Test 11/25/24 05:00 11/24/24 16:28 11/24/24 16:15 11/24/24 15:25 White Blood Count 7.0 10^3/uL (4.4-10.8) Red Blood Count 5.02 10^6/uL (4.0-5.20) Hemoglobin 14.3 g/dL (12.2-16.2) Hematocrit 42.6 % (36.0-46.0) Mean Corpuscular Volume 84.8 fL (80.0-100.0) Mean Corpuscular Hemoglobin 28.5 pg (28.0-32.0) Mean Corpuscular Hemoglobin Concent 33.6 g/dL (32.0-36.0) Red Cell Distribution Width 14.1 % (11.8-14.3) Platelet Count 389 10^3/uL (140-450) Mean Platelet Volume 7.6 fL (6.9-10.8) Neutrophils (%) (Auto) 41.0 % (37.0-80.0) Lymphocytes (%) (Auto) 44.9 % (10.0-50.0) Monocytes (%) (Auto) 11.0 % (0.0-12.0) Eosinophils (%) (Auto) 2.6 % (0.0-7.0) Basophils (%) (Auto) 0.5 % (0.0-2.0) Neutrophils # (Auto) 2.9 10 ^3/uL (1.6-8.6) Lymphocytes # (Auto) 3.1 10 ^3/uL (0.4-5.4) Monocytes # (Auto) 0.8 10 ^3/uL (0-1.3) Eosinophils # (Auto) 0.2 10 ^3/uL (0-0.8) Basophils # (Auto) 0 10 ^3/uL (0-0.2) Nucleated Red Blood Cells 0.3 % Sodium Level 140 mmol/L (136-145) Potassium Level 3.8 mmol/L (3.5-5.1) Chloride Level 107 mmol/L (98-107) Carbon Dioxide Level 27 mmol/L (20-31) Anion Gap 6 (5-15) Blood Urea Nitrogen 9 mg/dL (9-23) Creatinine 0.77 mg/dL (0.550-1.02) Glomerular Filtration Rate Calc 110 mL/min (>90) BUN/Creatinine Ratio 11.7 (10.0-20.0) Serum Glucose 96 mg/dL (74-106) Calcium Level 8.6 mg/dL (8.7-10.4) Total Bilirubin 0.2 mg/dL (0.2-1.0) Aspartate Amino Transferase (AST) 19 U/L (13-40) Alanine Aminotransferase (ALT) 35 U/L (7-40) Alkaline Phosphatase 66 U/L (46-116) Total Protein 6.3 g/dL (5.7-8.2) Albumin 4.0 g/dL (3.2-4.8) Troponin I High Sensitivity 16 ng/L (</=34) Influenza Type A Antigen Negative (Negative) Influenza Type B Antigen Negative (Negative) Lactic Acid Level 1.0 mmol/L (0.4-2.0) B-Type Natriuretic Peptide 14.19 pg/mL (0-100) Lipase 28 U/L (12-53) Test 11/24/24 15:10 11/24/24 14:53 Urine Color Yellow (Yellow) Urine Clarity Turbid (Clear) Urine pH 6.5 (5.0-9.0) Urine Specific [place] 1.021 (1.001-1.035) Urine Protein Negative (Negative) Urine Ketones 1+ (Negative) Urine Blood Negative /uL (Negative) Urine Nitrite Negative (Negative) Urine Bilirubin Negative (Negative) Urine Urobilinogen Normal mg/dL (Negative) Urine Leukocyte Esterase Trace /uL (Negative) Urine RBC 4 /hpf (0 - 4) Urine Microscopic WBC 2 /HPF (0-5) Urine Squamous Epithelial Cells Few /hpf (<5) Urine Bacteria Few /hpf (None Seen) Urine Mucus Few (None Seen) Urine Glucose Normal mg/dL (Normal) Urine Test Negative (Negative) POC Glucose 113 mg/dl (70-106) Other Laboratory Tests 11/25/24 05:00 Brief Hx & Hospital Course: Final diagnoses: Vasovagal syncope UTI Acute gastroenteritis Asthma Pineal cyst 24-year-old female who was admitted for a syncopal episode after she was sick with nausea and vomiting and diarrhea for few hours Evaluation here was negative CT scan of the head was negative Cervical spine x-ray 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 Carotid Doppler showed possible carotid stenosis and therefore a CT angiogram of the head and neck was done which was negative for any stenosis Overall the patient was asymptomatic while she was here in the hospital Her vital signs were normal She was found to have mild UTI which was treated with IV antibiotics She was given IV fluids and she feels better and therefore she will be discharged home to follow up as an outpatient with the primary care physician and take 2 days off from work Condition at Discharge: Stable Final Diagnosis/Problems List Vasovagal syncope UTI Acute gastroenteritis Asthma Pineal cyst Discharge Disposition: Home SNF Discharge Will this Physician continue t: No Discharge Instruct/Medications Diet: Regular Activity: No Restrictions, As Tolerated Follow Up/Referral: PCP CHRISTIANE Medications: Macrobid 100 mg bid x 5 days Discharge Statement: "Patient was advised to return to the ER or call 911 if any headaches, dizziness, shortness of breath, chest pain, abdominal pain, bleeding, fevers, or worsening of medical condition. Patient was counseled about treatment plan, medications, possible side effects, patientverbalized understanding. All questions were answered to the best of my ability. This discharge took greater then 30 minutes in planning, reviewing documentation, counseling the patient, and discussing with other team members." ASSESSMENT ASSESSMENT Assessment Vasovagal syncope UTI Acute gastroenteritis Asthma Pineal cyst Date of Service: Nov 26, 2024 Billing Provider: JOSEPH FERRARI MD Common Visit Codes: 35821-UPI/OBS DISCH DAY >30min JOSEPH FERRARI MD Nov 26, 2024 20:55
== END 2024-11-26 15:54 | disposition home or self-care (01) | DRG 392 ==
LOC: ER 14:42 → EEVIPCON 14:42 → OVERFLOW 19:22 → TELE-EAST 19:23
PROVIDERS: ADMIT Internal Medicine Geriatric Medicine; ATTEND Internal Medicine Geriatric Medicine
DX: K52.9 Noninfective gastroenteritis and colitis, unspecified (principal); N39.0 Urinary tract infection, site not specified; R55 Syncope and collapse; S09.90XA Unspecified injury of head, initial encounter; J45.909 Unspecified asthma, uncomplicated; X58.XXXA Exposure to other specified factors, initial encounter; G93.0 Cerebral cysts; Z79.899 Other long term (current) drug therapy; Y93.89 Activity, other specified; Y92.89 Other specified places as the place of occurrence of the external cause; Y99.8 Other external cause status
CPT/HCPCS: 36415; 70450; 70496; 70498; 70551; 72040; 80053; 81001; 81025; 82962; 83605; 83690; 83880; 84484; 85025; 87040; 87086; 87804; 93005; 93306; 93886; 96361; 96374; 96375; G0378; J2405; J2470

== ENCOUNTER 2025-02-25 16:18 | Inpatient (IN) | payer BC, MEDICAID ==
[~2025-02-25] VITALS: Ht 157.5 cm; Wt 100.4 kg
[2025-02-25] MEDS: SODIUM CHLORIDE 0.9% 1,000 ML IV SCH
[~2025-02-25 16:18] MED LIST: ALBU108A5 IN; BUDE0.253 IN; NITR-87 PO
--- NOTE | 2025-02-25 17:19 | ED.PDOC ---
Eye-HPI HPI Comments 24-year-old female presents to the ED for chief complaint of earache. Patient states she has had right ear pain for the past several days. Patient was seen at urgent care and was placed on Augmentin. She has been followed at urgent care for the pain, Augmentin was discontinued, she was placed on cefdinir received IM Rocephin due to persistent symptoms. Patient states was seen at urgent care today and referred to the ER for worsening symptoms. Patient states right ear pain is severe, there has been no relief with Tylenol and ibuprofen, pain radiates to the right face/periorbital area, right posterior auricular area, and right neck. Denies fever or vision changes, however states hearing in the right ear is diminished, and that it feels clogged. Patient otherwise has noted elevated blood pressure 141/86 heart rate 110 but otherwise stable vitals including temperature 98.0 F respiratory rate 18 hand O2 saturation at 98% on room air. Patient otherwise denies any other symptoms at this time. Chief Complaint: Earache Time Seen by MD: 17:18 Primary Care Provider: VICTORIA Reviewed Notes: Medications, Allergies Allergies: Coded Allergies: NO KNOWN ALLERGIES (Unverified , 02/02/13) Home Meds Active Scripts Nitrofurantoin Monohydrate Mac (Macrobid) 100 Mg Cap, 100 MG PO BID for 5 Days, #10 CAP Prov:JOSEPH FERRARI MD 11/26/24 Reported Medications Budesonide (Inhalation) (Budesonide) 0.25 Mg/2 Ml [place], IN BID, ML 11/25/24 Albuterol Sulfate (Albuterol Sulfate Hfa) 108 Mcg/Act Aer, 108 MCG IN PRN, AER 11/25/24 Information Source: Patient Mode of Arrival: Ambulatory Past Medical History PAST MEDICAL HISTORY: Asthma Surgical History: Denies all surgeries IMPORT COORDINATION AND PRODUCTION HEAD History: No Pertinent IMPORT COORDINATION AND PRODUCTION HEAD History Family History Family History: Reviewed,noncontributory to illness Social History Smoker: Non-Smoker Drugs: Denies Drug Use Lives In: Home All Other Systems: Reviewed and Negative (See HPI) Physical Exam General Appearance: Mild Distress HEENT: Other (Pupils and face symmetric. Moist mucous membranes. Right ear canal edematous with yellow/crusty discharge. Unable to visualize right TM due to canal edema. Right mastoid tenderness to palpation.) Neck: Full Range of Motion, Normal Inspection, Other (Right cervical chain lymphadenopathy/tenderness) Respiratory: No Accessory Muscle Use, No Respiratory Distress Cardiovascular: Regular Rate/Rhythm Breast Exam: Deferred Gastrointestinal: Non Tender, Soft Genitalia: Deferred Pelvic: Deferred Rectal: Deferred Extremities: Normal inspection, Normal range of motion, No pedal edema Neurologic: Alert (Oriented x4), Normal Affect, Normal Mood, Other (Ambulatory) Cerebellar Function: NOT DONE Reflexes: NOT DONE Skin: Dry, Normal Color, Warm Lymphatic: NOT DONE Was a procedure done? Was a procedure done?: No EENT DIFF Eye: N/A Ear: Cerumen Impaction, Otitis Externa, Otitis Media, Other (mastoiditis, sepsis, among others) Nose: N/A Mouth: N/A Sore Throat: N/A X-Ray, Labs, Meds, VS Vital Signs Date Time Temp Pulse Resp B/P (MAP) Pulse Ox O2 Delivery O2 Flow Rate FiO2 02/25/25 21:17 98.5 88 16 126/79 (95) 97 98.5 02/25/25 21:16 88 16 126/79 02/25/25 19:17 101 16 96 Room Air* 0 21 02/25/25 19:17 101 16 125/79 (94) 96 02/25/25 18:50 101 16 125/79 02/25/25 16:21 98.0 110 18 141/86 98 98.0 Lab Test 02/25/25 17:27 02/25/25 17:23 Range/Units White Blood Count 7.4 4.4-10.8 10^3/uL Red Blood Count 5.42 H 4.0-5.20 10^6/uL Hemoglobin 15.5 12.2-16.2 g/dL Hematocrit 45.8 36.0-46.0 % Mean Corpuscular Volume 84.5 80.0-100.0 fL Mean Corpuscular Hemoglobin 28.7 28.0-32.0 pg Mean Corpuscular Hemoglobin Concent 33.9 32.0-36.0 g/dL Red Cell Distribution Width 13.8 11.8-14.3 % Platelet Count 535 H 140-450 10^3/uL Mean Platelet Volume 7.7 6.9-10.8 fL Neutrophils (%) (Auto) 51.7 37.0-80.0 % Lymphocytes (%) (Auto) 38.0 10.0-50.0 % Monocytes (%) (Auto) 7.6 0.0-12.0 % Eosinophils (%) (Auto) 2.2 0.0-7.0 % Basophils (%) (Auto) 0.5 0.0-2.0 % Neutrophils # (Auto) 3.8 1.6-8.6 10 ^3/uL Lymphocytes # (Auto) 2.8 0.4-5.4 10 ^3/uL Monocytes # (Auto) 0.6 0-1.3 10 ^3/uL Eosinophils # (Auto) 0.2 0-0.8 10 ^3/uL Basophils # (Auto) 0 0-0.2 10 ^3/uL Nucleated Red Blood Cells 0.1 % Sodium Level 139 136-145 mmol/L Potassium Level 4.1 3.5-5.1 mmol/L Chloride Level 104 98-107 mmol/L Carbon Dioxide Level 25 20-31 mmol/L Anion Gap 10 5-15 Blood Urea Nitrogen 12 9-23 mg/dL Creatinine 0.85 0.550-1.02 mg/dL Glomerular Filtration Rate Calc 97 >90 mL/min BUN/Creatinine Ratio 14.1 10.0-20.0 Serum Glucose 95 74-106 mg/dL Calcium Level 9.4 8.7-10.4 mg/dL Lactic Acid Level 0.7 0.4-2.0 mmol/L Current Medications Medications (Trade) Dose Ordered Sig/Lila Route Start Time Stop Time Status Last Admin Morphine Sulfate 4 mg ONCE ONCE IV 02/25/25 17:15 02/25/25 17:16 DC 02/25/25 18:50 Ondansetron HCl (Zofran) 4 mg ONCE ONCE IV 02/25/25 17:15 02/25/25 17:16 DC 02/25/25 18:51 Sodium Chloride 1,000 ml @ 1,000 mls/hr Q1H ONCE IV 02/25/25 19:15 02/25/25 20:14 DC 02/25/25 21:03 Ceftriaxone Sodium 50 ml @ 100 mls/hr ONCE ONCE IV 02/25/25 19:15 02/25/25 19:44 DC 02/25/25 19:43 Ketorolac Tromethamine (Toradol Injection) 30 mg ONCE ONCE IV 02/25/25 19:30 02/25/25 19:31 DC 02/25/25 21:16 PROCEDURE(s): HWOCT - HEAD WITHOUT CONTRAST REASON: L ear pain, L mastoid tenderness, r/o mastoiditis ORDER NUMBER(s): [id number], ACCESSION NUMBER(s): [id number] CT HEAD WITHOUT CONTRAST Indication: L ear pain, L mastoid tenderness, r/o mastoiditis EXAM DATE: 02/25/2025 05:19 PM COMPARISON: CT HEAD WITHOUT CONTRAST on DOS: 11/24/24, CT HEAD WITHOUT CONTRAST on DOS: 06/22/24 TECHNIQUE: CT of the head without intravenous contrast. RADIATION DOSE: CTDIvol: 57 mGy, DLP: 1025 mGy*cm FINDINGS: There is no intracranial hemorrhage. There is no extra-axial fluid, mass, mass effect or midline shift. The ventricles are midline and normal in size. Basilar cisterns are patent. Guzman-white differentiation is maintained. Small right mastoid effusion.. Imaged portion of the orbits are unremarkable. IMPRESSION: No intracranial hemorrhage or mass effect. Small right mastoid effusion. X-Ray, Labs, Meds, VS Comment 24-year-old female with a history of asthma complaining of progressively worsening right ear pain leading to the right face, neck and posterior auricular area despite treatment with oral antibiotics, IM antibiotics, Tylenol and ibuprofen Vitals remarkable for heart rate 110, BP 141/86 Exam remarkable for right ear canal yellow discharge, right ear canal edema, right mastoid tenderness and right cervical dry chain offbearer lymphadenopathy Rhythm strip independently interpreted by me: Sinus tach, rate 110, no ectopy. CT head remarkable for right mastoid effusion CBC, basic metabolic panel and lactate unremarkable Patient treated with the following in the ED: 1 L 0.9 normal saline IV bolus, morphine 4 mg IV, Zofran 4 mg IV, Rocephin 1 g IV, Toradol 30 mg IV On re-evaluation, patient states pain has improved. Vitals were stable. Plan is to admit the patient for IV antibiotics, pain control. Time of 1ST Reevaluation: 19:25 Reevaluation 1ST: Improved Patient Education/Counseling: Diagnosis, Treatment Family Education/Counseling: No Family Present SEPSIS Sepsis Screen Date sepsis recognized/suspect: Feb 25, 2025 Time Sepsis recognized/suspect: 1624 Recent Procedure: No On Antibiotic Therapy: No Respiratory Rate >20: No Heart Rate >90: No Temp<36 C (96.8 F) or >38.3 C: No SBP <90 or MAP <65 mmHG: No New Acute Mental Status Change: No Is the patient on CPAP, BIPAP,: No SEPSIS EXCLUSION NOTE: Sepsis Exclusion Note: Patient presents with SIRS criteria, but the SIRS response is attributed to [pain ], not sepsis. Sepsis bundle is not initiated at this time, due to this reason. Further management will focus on the treatment of the above condition (s). Physician Orders Blood Culture (02/25/25 17:09) Head Without Contrast (02/25/25 17:09) Wound Culture W/ Gs (02/25/25 17:09) Admit (02/25/25 22:24) Allergies (02/25/25 22:24) Code Status (02/25/25 22:24) Sodium Chloride 0.9% (02/25/25 22:30) Hydrocodone-Acet 5/325mg Tab ([place] 5/32 (02/25/25 22:30) Ondansetron Hcl (Zofran) (02/25/25 22:30) Complete Blood Count (02/26/25 04:00) Comprehensive Metabolic Panel (02/26/25 04:00) Condition: Serious (02/25/25 22:24) Bedrest With Bathroom Privileg (02/25/25 22:24) Vital Signs Date Time Temp Pulse Resp B/P (MAP) Pulse Ox O2 Delivery O2 Flow Rate FiO2 02/25/25 21:17 98.5 88 16 126/79 (95) 97 98.5 02/25/25 21:16 88 16 126/79 02/25/25 19:17 101 16 96 Room Air* 0 21 02/25/25 19:17 101 16 125/79 (94) 96 02/25/25 18:50 101 16 125/79 02/25/25 16:21 98.0 110 18 141/86 98 98.0 Laboratory Tests Test 02/25/25 17:23 02/25/25 17:27 Lactic Acid Level 0.7 mmol/L (0.4-2.0) White Blood Count 7.4 10^3/uL (4.4-10.8) Medications Medications Dose Ordered Sig/Lila Route Start Time Stop Time Status Last Admin Dose Admin Ceftriaxone Sodium 50 ml @ 100 mls/hr ONCE ONCE IV 02/25/25 19:15 02/25/25 19:44 DC 02/25/25 19:43 Ketorolac Tromethamine 30 mg ONCE ONCE IV 02/25/25 19:30 02/25/25 19:31 DC 02/25/25 21:16 Morphine Sulfate 4 mg ONCE ONCE IV 02/25/25 17:15 02/25/25 17:16 DC 02/25/25 18:50 Ondansetron HCl 4 mg ONCE ONCE IV 02/25/25 17:15 02/25/25 17:16 DC 02/25/25 18:51 Sodium Chloride 1,000 ml @ 1,000 mls/hr Q1H ONCE IV 02/25/25 19:15 02/25/25 20:14 DC 02/25/25 21:03 Departure 1 Departure Time of Disposition: 19:25 Impression: Primary Impression: Otitis externa Additional Impression: Mastoiditis Disposition: 09 ADMITTED INPATIENT Admit to: Med Surg Condition: Guarded Critical Care Note Critical Care Time?: No Stability Stability form required: No Heart Score Heart Score: Heart Score Response (Comments) Value History N/A 0 EKG N/A 0 Age N/A 0 Risk Factors N/A 0 Troponin N/A 0 Total 0 I personally scribed for JONI JENKINS MD ([email or web address]) on 02/25/25 at 17:19. Electronically submitted by Arnoldo Richardson ([email or web address]). JONI JENKINS MD Feb 25, 2025 17:19
[2025-02-25 17:49] LABS: Nucleated Red Blood Cells % 0.1 %
[2025-02-25 17:51] LABS: Hematocrit 45.8 % (36.0-46.0); Hemoglobin 15.5 g/dL (12.2-16.2); Mean Corpuscular Hemoglobin 28.7 pg (28.0-32.0); Mean Corpuscular Volume 84.5 fL (80.0-100.0)
--- NOTE | 2025-02-25 17:53 | DVH ---
CT HEAD WITHOUT CONTRAST Indication: L ear pain, L mastoid tenderness, r/o mastoiditis EXAM DATE: 02/25/2025 05:19 PM COMPARISON: CT HEAD WITHOUT CONTRAST on DOS: 11/24/24, CT HEAD WITHOUT CONTRAST on DOS: 06/22/24 TECHNIQUE: CT of the head without intravenous contrast. RADIATION DOSE: CTDIvol: 57 mGy, DLP: 1025 mGy*cm FINDINGS: There is no intracranial hemorrhage. There is no extra-axial fluid, mass, mass effect or midline shif t. The ventricles are midline and normal in size. Basilar cisterns are patent. Guzman-white differentia tion is maintained. Small right mastoid effusion.. Imaged portion of the orbits are unremarkable. IMPRESSION: No intracranial hemorrhage or mass effect. Small right mastoid effusion.
[2025-02-25 17:56] LABS: Anion Gap 10 (5-15); Carbon Dioxide 25 mmol/L (20-31); Chloride 104 mmol/L (98-107); Potassium 4.1 mmol/L (3.5-5.1); Sodium 139 mmol/L (136-145)
[2025-02-25 17:57] LABS: Calcium 9.4 mg/dL (8.7-10.4)
[2025-02-25 18:02] LABS: BUN/Creatinine Ratio 14.1 (10.0-20.0); Blood Urea Nitrogen 12 mg/dL (9-23); Glucose 95 mg/dL (74-106)
[2025-02-25] MEDS: MORPHINE SULFATE 4 MG/ML SYR/VIAL IV ONE (18:50)
[2025-02-25] MEDS: ONDANSETRON HCL 4 MG/2 ML VIAL IV ONE (18:51)
[2025-02-25 19:17] VITALS: PULSE 101; RESP 16; O2SAT 96
[2025-02-25] MEDS: CEFOTAXIME SODIUM 1 GM in D5W 5% 50 ML IV ONE (19:29)
[2025-02-25] MEDS: SODIUM CHLORIDE 0.9% 1,000 ML IV ONE (21:03)
[2025-02-25] MEDS: KETOROLAC TROMETH 30 MG/ML 1ML VIAL IV ONE (21:16)
[2025-02-25] MEDS ORDERED: HYDROcodone-ACET 5/325MG TAB PO PRN (22:30)
[2025-02-25 22:44] VITALS: BP 117/86; PULSE 82; RESP 18; TEMP 98.2; O2SAT 95
[2025-02-25 23:44] VITALS: BP 117/86; PULSE 81; RESP 16; TEMP 98.2; O2SAT 95
[2025-02-26] VITALS (7 sets, daily range): BP systolic 101–126; BP diastolic 58–86; PULSE 86–100; RESP 16–19; TEMP 97.8–98.3; O2SAT 94–99
[2025-02-26 00:33] LABS: Nucleated Red Blood Cells % 0.0 %
[2025-02-26 00:36] LABS: Hematocrit 43.1 % (36.0-46.0); Hemoglobin 14.4 g/dL (12.2-16.2); Mean Corpuscular Hemoglobin 28.3 pg (28.0-32.0); Mean Corpuscular Volume 84.8 fL (80.0-100.0)
[2025-02-26] MEDS: ONDANSETRON HCL 4 MG/2 ML VIAL IV PRN (00:36)
[2025-02-26 00:46] LABS: INR 0.99 (0.9-1.15); Prothrombin Time 10.5 sec (9.3-11.8)
[2025-02-26 00:50] LABS: Alanine Aminotransferase 31 U/L (7-40); Albumin 4.4 g/dL (3.2-4.8); Alkaline Phosphatase 84 U/L (46-116); Anion Gap 10 (5-15); BUN/Creatinine Ratio 20.3 (10.0-20.0); Blood Urea Nitrogen 15 mg/dL (9-23); Calcium 8.9 mg/dL (8.7-10.4); Carbon Dioxide 24 mmol/L (20-31); Chloride 105 mmol/L (98-107); Glucose 97 mg/dL (74-106); Potassium 4.0 mmol/L (3.5-5.1); Sodium 139 mmol/L (136-145); Total Protein 7.2 g/dL (5.7-8.2)
[2025-02-26 01:00] LABS: Bilirubin, Total 0.2 mg/dL (0.2-1.0)
--- NOTE | 2025-02-26 01:57 | DVHHPRES ---
History of Present Illness Resident Creating Document: MEGHA OCONNOR RESIDENT History of Present Illness Whitney Villagomez a year-old female with past medical history of GERD, exercise induced asthma, presented to the ED with chief complaints of right ear pain which is radiating to the right jaw, 9/10 in intensity, constant, associated with facial swelling, since last Sunday. Was seen at urgent care and was placed on Augmentin and has been following urgent care for the right ear pain. But patient was switched to cefdinir due to Augmentin not working. Patient was seen at urgent care today and was referred to the ER for worsening symptoms. She states that her ear pain severe, she took Tylenol and ibuprofen without relief. Patient also states that her hearing has decreased in the right ear, and that it feels clogged. Patient also stated she had 1 episode of vomiting, nausea denies any fever, chills, diarrhea, eye pain, blurred vision, headache, dizziness, nasal congestion, throat pain. Surgical history: Denies Family history: Noncontributory Personal history: Denies smoking, drinking, drug use PCP: Dr. Goldstein Review of Systems Constitutional: No: Fever, Chills, Sweats, Weakness, Malaise, Other Eyes: No: Pain, Vision change, Conjunctivae inflammation, Eyelid inflammation, Other, Redness ENT: Ear pain, Ear discharge; No: Nose pain, Nose discharge, Nose congestion, Mouth pain, Mouth swelling, Throat pain, Throat swelling, Other Respiratory: No: Cough, Dry, Shortness of breath, SOB with excertion, Wheezing, Hemoptysis, Pleuritic Pain, Sputum, Wheezing, Other Cardiovascular: No: Chest Pain, Palpitations, Orthopnea, Paroxysmal Noc. Dyspnea, Edema, Lt Headedness, Other Gastrointestinal: Nausea, Vomiting; No: Abdominal Pain, Diarrhea, Constipation, Melena, Hematochezia, Other Genitourinary: No Dysuria, No Frequency, No Incontinence, No Hematuria, No Retention, No Other Skin: No: Rash, Lesions, Jaundice, Bruising, Other Neurological: No: Weakness, Numbness, Incoordination, Change in speech, Confusion, Seizures, Other Allergies: Coded Allergies: NO KNOWN ALLERGIES (Unverified , 02/02/13) Medications Current Medications Medications Dose Ordered Sig/Lila Route Start Time Stop Time Status Last Admin Dose Admin Sodium Chloride 1,000 ml @ 60 mls/hr [id number] IV 02/25/25 22:30 02/25/25 00:00 60 MLS/HR Acetaminophen/ Hydrocodone Bitart 1 tab Q4HP PRN PO 02/25/25 22:30 Ondansetron HCl 4 mg Q4HP PRN IV 02/25/25 22:30 02/26/25 00:36 4 MG Ceftriaxone Sodium 50 ml @ 100 mls/hr Q24H IV 02/26/25 21:00 Ofloxacin 5 drop BID EACH EAR 02/26/25 10:00 Exam Vital Signs Vital Signs Date Time Temp Pulse Resp B/P (MAP) Pulse Ox O2 Delivery O2 Flow Rate FiO2 02/26/25 01:00 97.8 94 19 126/81 (96) 98 97.8 02/25/25 23:44 Room Air* 0 21 Exam General: Patient alert and oriented in person, place and time. Patient following commands. In Moderate distress HEENT: Normocephalic, atraumatic, moist mucous membranes, on otoscope: Right ear discharge,Tragus tenderness, erythema canal swelling, inability to see tympanic membrane, no evidence of oral thrush Ear/pulmonary: Clear lungs bilaterally, vesicular murmurs present in almost all lung hill, no associated crackles or wheezes. Cardiovascular: Normal heart sounds S1 and S2 with no associated murmurs Abdomen: Abdomen nondistended, there is no pain to palpation in any of the abdominal quadrants, no palpable masses. Extremities: There is no peripheral edema present at the lower extremities. Peripheral Pulses: 3+ Radial (R). 3+ Radial (L). 3+ Dorsalis pedis (R). 3+ Dorsalis pedis(L) Skin: No rashes or pruritus, there is no sacral edema present at this time. Neurological: Intact cranial nerves with no focal neurologic deficits Psych/mood: Normal psych/mood Labs/Xrays Labs Test 02/26/25 00:18 02/25/25 17:23 Range/Units White Blood Count 10.1 # 4.4-10.8 10^3/uL Red Blood Count 5.09 4.0-5.20 10^6/uL Hemoglobin 14.4 12.2-16.2 g/dL Hematocrit 43.1 36.0-46.0 % Mean Corpuscular Volume 84.8 80.0-100.0 fL Mean Corpuscular Hemoglobin 28.3 28.0-32.0 pg Mean Corpuscular Hemoglobin Concent 33.4 32.0-36.0 g/dL Red Cell Distribution Width 14.1 11.8-14.3 % Platelet Count 504 H 140-450 10^3/uL Mean Platelet Volume 7.5 6.9-10.8 fL Neutrophils (%) (Auto) 59.5 37.0-80.0 % Lymphocytes (%) (Auto) 31.9 10.0-50.0 % Monocytes (%) (Auto) 6.8 0.0-12.0 % Eosinophils (%) (Auto) 1.2 0.0-7.0 % Basophils (%) (Auto) 0.6 0.0-2.0 % Neutrophils # (Auto) 6.0 1.6-8.6 10 ^3/uL Lymphocytes # (Auto) 3.2 0.4-5.4 10 ^3/uL Monocytes # (Auto) 0.7 0-1.3 10 ^3/uL Eosinophils # (Auto) 0.1 0-0.8 10 ^3/uL Basophils # (Auto) 0.1 0-0.2 10 ^3/uL Nucleated Red Blood Cells 0.0 % Prothrombin Time 10.5 9.3-11.8 sec Prothrombin Time INR 0.99 0.9-1.15 Sodium Level 139 136-145 mmol/L Potassium Level 4.0 3.5-5.1 mmol/L Chloride Level 105 98-107 mmol/L Carbon Dioxide Level 24 20-31 mmol/L Anion Gap 10 5-15 Blood Urea Nitrogen 15 9-23 mg/dL Creatinine 0.74 0.550-1.02 mg/dL Glomerular Filtration Rate Calc 115 >90 mL/min BUN/Creatinine Ratio 20.3 H 10.0-20.0 Serum Glucose 97 74-106 mg/dL Calcium Level 8.9 8.7-10.4 mg/dL Total Bilirubin 0.2 0.2-1.0 mg/dL Aspartate Amino Transferase (AST) 18 13-40 U/L Alanine Aminotransferase (ALT) 31 7-40 U/L Alkaline Phosphatase 84 46-116 U/L Total Protein 7.2 5.7-8.2 g/dL Albumin 4.4 3.2-4.8 g/dL Beta HCG, Quantitative < 0.0 L 1.5-4.2 mIU/mL Lactic Acid Level 0.7 0.4-2.0 mmol/L SEPSIS Sepsis Screen Date sepsis recognized/suspect: Feb 25, 2025 Time Sepsis recognized/suspect: 2119 Recent Procedure: No On Antibiotic Therapy: No Respiratory Rate >20: No Heart Rate >90: No Temp<36 C (96.8 F) or >38.3 C: No SBP <90 or MAP <65 mmHG: No New Acute Mental Status Change: No Is the patient on CPAP, BIPAP,: No Physician Orders Admit (02/25/25 22:24) Allergies (02/25/25 22:24) Code Status (02/25/25 22:24) Sodium Chloride 0.9% (02/25/25 22:30) Hydrocodone-Acet 5/325mg Tab (Seneca 5/32 (02/25/25 22:30) Ondansetron Hcl (Zofran) (02/25/25 22:30) Condition: Serious (02/25/25 22:24) Bedrest With Bathroom Privileg (02/25/25 22:24) Regular Diet (02/26/25 Breakfast) Ceftriaxone 1gm/50ml (Rocephin) (02/26/25 21:00) Mrsa Screen (02/26/25 00:01) Ofloxacin (Otic) (Floxin Otic) (02/26/25 10:00) Covid19 Antigen Maryam (02/26/25 04:00) Rapid Influenza A&B (02/26/25 04:00) Drug Screen (02/26/25 00:08) Urinalysis (02/26/25 00:08) Vital Signs Date Time Temp Pulse Resp B/P (MAP) Pulse Ox O2 Delivery O2 Flow Rate FiO2 02/26/25 01:00 97.8 94 19 126/81 (96) 98 97.8 02/25/25 23:44 Room Air* 0 21 02/25/25 23:44 98.2 81 16 117/86 (96) 95 98.2 02/25/25 22:44 98.2 82 18 117/86 (96) 95 98.2 02/25/25 21:17 98.5 88 16 126/79 (95) 97 98.5 02/25/25 21:16 88 16 126/79 02/25/25 19:17 101 16 96 Room Air* 0 21 02/25/25 19:17 101 16 125/79 (94) 96 02/25/25 18:50 101 16 125/79 Laboratory Tests Test 02/25/25 17:23 02/25/25 17:27 02/26/25 00:18 Lactic Acid Level 0.7 mmol/L (0.4-2.0) White Blood Count 7.4 10^3/uL (4.4-10.8) 10.1 10^3/uL (4.4-10.8) # Medications Medications Dose Ordered Sig/Lila Route Start Time Stop Time Status Last Admin Dose Admin Ceftriaxone Sodium 50 ml @ 100 mls/hr ONCE ONCE IV 02/25/25 19:15 02/25/25 19:44 DC 02/25/25 19:43 100 MLS/HR Ketorolac Tromethamine 30 mg ONCE ONCE IV 02/25/25 19:30 02/25/25 19:31 DC 02/25/25 21:16 30 MG Morphine Sulfate 4 mg ONCE ONCE IV 02/25/25 17:15 02/25/25 17:16 DC 02/25/25 18:50 4 MG Ondansetron HCl 4 mg ONCE ONCE IV 02/25/25 17:15 02/25/25 17:16 DC 02/25/25 18:51 4 MG Ondansetron HCl 4 mg Q4HP PRN IV 02/25/25 22:30 02/26/25 00:36 4 MG Sodium Chloride 1,000 ml @ 60 mls/hr [id number] IV 02/25/25 22:30 02/25/25 00:00 60 MLS/HR Sodium Chloride 1,000 ml @ 1,000 mls/hr Q1H ONCE IV 02/25/25 19:15 02/25/25 20:14 DC 02/25/25 21:03 1,000 MLS/HR Assessment/Plan Assessment/Plan # moderate Right otitis externa with partial external ear obstruction # Acute strepcoccus pharyngitis # right facial swelling, concern for retropharyngeal abscess - workup to be done - rapid strep test positive - IV ceftriaxone - ofloxacin 5 drops b.i.d. - neomycin/polymyxin 4 drops b.i.d. - # exercise induced asthma -continue home medication # history of syncopal episodes likely due to vasovagal syncope # recurrent UTIs # obesity BMI 40.1 Goals of care addressed with the patient for more than 31 minutes: Full code status Case discussed with , patient and nurse Plan discussed with: Patient My Orders Orders - MEGHA OCONNOR RESIDENT Procedure Category Date Status Time Admit ADMIT 02/25/25 Transmitted 22:24 Allergies GOOD 02/25/25 In Process 22:24 Code Status CODE 02/25/25 Transmitted 22:24 Sodium Chloride 0.9% PHA 02/25/25 In Process 22:30 Hydrocodone-Acet PHA 02/25/25 In Process 5/325mg Tab (Seneca 22:30 Ondansetron Hcl PHA 02/25/25 In Process (Zofran) 22:30 Condition: Serious GOOD 02/25/25 In Process 22:24 Bedrest With Bathroom GOOD 02/25/25 In Process Privileg 22:24 Regular Diet DIET 02/26/25 Transmitted Breakfast Ceftriaxone 1gm/50ml PHA 02/26/25 In Process (Rocephin) 21:00 Mrsa Screen CHRIS 02/26/25 Logged 00:01 Ofloxacin (Otic) PHA 02/26/25 In Process (Floxin Otic) 10:00 Covid19 Antigen Maryam LAB 02/26/25 Logged 04:00 Rapid Influenza A&B LAB 02/26/25 Logged 04:00 Drug Screen LAB 02/26/25 Logged 00:08 Urinalysis LAB 02/26/25 Logged 00:08 Date of Service: Feb 26, 2025 Billing Provider: YESSI SILVER MD Common Visit Codes: [id number] INP/OBS CARE (HIGH) Secondary Visit Codes: [id number] CARE PLAN 30 MINUTES MEGHA OCONNOR Feb 26, 2025 01:57
[2025-02-26 04:59] LABS: Rapid Strep A Screen-Throat Positive
[2025-02-26 07:13] LABS: COVID19 ANTIGEN SOFIA FIA NEGATIVE (NEGATIVE)
[2025-02-26] MEDS ORDERED: NEOMYCIN-POLYM-HC 1% OTIC(EAR) SOLN 10ML RIGHT EAR ONE (07:15)
[2025-02-26] MEDS ORDERED: NEOMYCIN-POLYM-HC 1% OTIC(EAR) SOLN 10ML RIGHT EAR SCH (10:00)
[2025-02-26] MEDS ORDERED: OFLOXACIN OTIC(EAR) 0.3 % DROP 5ML RIGHT EAR SCH (10:00)
[2025-02-26] MEDS ORDERED: OFLOXACIN OTIC(EAR) 0.3 % DROP 5ML EACH EAR SCH (10:00)
[2025-02-26] MEDS: NEOMYCIN-POLYMY-DEXAMETH 0.1% OPTH(EYE) SUSP 5ML OP SCH ×2 (10:25→16:43)
[2025-02-26 11:03] LABS: Urine Protein, UAD Negative (Negative)
--- NOTE | 2025-02-26 12:52 | DVHPNRES ---
Progress Note Date Seen: Feb 26, 2025 Resident Creating Document: ANGELITO TRAN RESIDENT Medical Necessity Reason Pt with a Central, PICC or Fol: No Subjective Review of Systems This is a 24-year-old female with the past medical history of GERD, exercise- induced asthma who presented to the ED with the complaint of right ear pain. Patient mentions she has had right ear pain since 1 week along with diet patient has swelling and ear discharge. The patient describes the pain as a 9 on 10 in intensity, constant and radiating to the right jaw. It was accompanied by chills. The patient denies any fever. She was seen at the urgent care where she was given Augmentin, was later switched to cefdinir. Also took Tylenol and ibuprofen for the pain but it did not resolve. Patient also mentions that her she has mild hearing loss in the right ear and feels like it is blocked. She went to the urgent care yesterday and was asked to go to the ER. The patient denies any throat pain, headache or cough. Past medical history: GERD, exercise-induced asthma, syncopal episodes Past surgical history: None Social & Personal history: Lives at home with family Smoking: Denies Alcohol: Denies Drug use: Denies Allergies: No known allergies Patient seen and examined at bedside. Patient is alert and oriented to time, place person and responding to all questions. Eyes: No Pain, No Vision change, No Conjunctivae inflammation, No Eyelid inflammation, No Redness ENT: Ear pain, Ear discharge, No Nose pain, No Nose discharge, No Nose congestion, No Mouth pain, No Mouth swelling, No Throat pain, No Throat swelling Cardiovascular: No Chest Pain, No Palpitations, No Orthopnea, No Paroxysmal No Dyspnea, No Edema, No Lt Headedness Respiratory: No Cough, No Dry, No Shortness of breath, No SOB with exertion, No Wheezing, No Hemoptysis, No Pleuritic Pain, No Sputum Gastrointestinal: No Nausea, No Vomiting, No Abdominal Pain, No Diarrhea, No Constipation, No Melena, No Hematochezia Genitourinary: No Dysuria, No Frequency, No Incontinence, No Hematuria, No Retention Objective vital signs Vital Sign Date Time Temp Pulse Resp B/P (MAP) Pulse Ox O2 Delivery O2 Flow Rate FiO2 02/26/25 09:09 98.3 92 16 122/72 (89) 96 98.3 94/25 08:00 Room Air* 0 21 Total Intake and Output 02/25/25 02/25/25 02/26/25 15:00 23:00 07:00 Intake Total 50 ml 50 ml Balance 50 ml 50 ml medications Current Medications Medications Dose Ordered Sig/Lila Route Start Time Stop Time Status Last Admin Dose Admin Sodium Chloride 1,000 ml @ 60 mls/hr [id number] IV 02/25/25 22:30 02/25/25 00:00 60 MLS/HR Acetaminophen/ Hydrocodone Bitart 1 tab Q4HP PRN PO 02/25/25 22:30 Ondansetron HCl 4 mg Q4HP PRN IV 02/25/25 22:30 02/26/25 10:42 4 MG Ofloxacin 5 drop BID EACH EAR 02/26/25 10:00 Cancel Ofloxacin 5 drop BID RIGHT EAR 02/26/25 10:00 UNV Neomycin/ Polymyxin/Bacitr/ Hydrocort 4 drop BID RIGHT EAR 02/26/25 10:00 UNV Piperacillin Sod/ Tazobactam Sod 100 ml @ 25 mls/hr Q6HR IV 02/26/25 12:00 UNV Ciprofloxacin 200 ml @ 200 mls/hr Q8HR IV 02/26/25 14:00 UNV Neomycin/ Polymyxin/ Dexamethasone 4 drop QID OP 02/26/25 18:00 03/01/25 18:01 Examination General Appearance: Cooperative. Well developed. Well nourished. NAD. Ear examination: The patient has pain on pulling the pinna, on otoscopy- the internal auditory canal looks red and is full of discharge and crusted discharge. Mild tenderness in the right mastoid area. Head Exam: Normal inspection Neck Exam: Normal inspection. Non-tender. Normal alignment Pulmonary/Respiratory: Chest non-tender. Clear bilateral breath sounds, no crackles, no wheezing. Cardiovascular/Chest: Regular rate and rhythm. No murmurs. No JVD. Peripheral Pulses: 2+ Radial (R). 2+ Radial (L). 2+ Pedal (R). 2+ Pedal (L) Abdominal Exam: Normal bowel sounds. Soft. normal abdomen, no visible veins, Nontender. No hepatospenomegaly. No masses Ankle Exam: Negative ankle edema Lower extremities: Negative lower extremity edema Neuro/Mental Status: A&O x4. Coherent. Thoughts/Psych: Normal thought pattern. Appropriate mood and affect. Good judgement and insight Skin Exam: Normal inspection. Normal color. Warm. Dry Nurses as a community outreach coordinator during the examination laboratory and microbiology Laboratory Tests 02/26/25 00:18 Test 02/26/25 00:18 Range/Units Serum Glucose 97 74-106 mg/dL Labs and/or images reviewed: Labs reviewed by me, Image(s) reviewed by me Problem List/Assessment/Plan Problem List/Assessment/Plan # Malignant Otitis externa, right ear # Acute mastoiditis, right ear # Right ear pain due to above # Rapid Group a strep antigen positive -CT head showed small right mastoid effusion -IV Zosyn, IV ciprofloxacin -IVF -neomycin/dexamethasone ear drops -blood culture, culture of ear discharge -monitor for systemic signs of sepsis # Exercise induced asthma -continue home medication # History of syncopal episodes, likely vasovagal with repeated hospitalization # Obesity class 3, BMI 40.1 -recommend lifestyle modification PUD prophylaxis: Not indicated DVT prophylaxis: Not indicated Goals of care: Full code, discussed for >22 minutes Plan discussed with patient Plan discussed with Dr. Vargas Plan discussed with: Patient My Orders My Orders Orders - ANGELITO TRAN RESIDENT Procedure Category Date Status Time Piperacillin-Tazob PHA 02/26/25 Logged 3.375gm (Zosyn 3.375g 12:00 Ciprofloxacin PHA 02/26/25 Logged 400mg/200ml (Cipro Iv) 14:00 Date of Service: Feb 26, 2025 Billing Provider: TALIA BECERRIL MD Common Visit Codes: [id number] INP/OBS CARE(HIGH) ANGELITO TRAN RESIDENT Feb 26, 2025 12:52 CHRISTA RODRIGUEZ RESIDENT Feb 27, 2025 09:13 TALIA BECERRIL MD Mar 02, 2025 01:19
[2025-02-26] MEDS: PIPERACILLIN-TAZOB 3.375GM 100 ML IV ONE (13:49)
[2025-02-26] MEDS: ACETAMINOPHEN 325 MG TAB PO PRN (15:05)
[2025-02-26] MEDS: CIPROFLOXACIN 400MG/200ML 200 ML IV SCH (15:06)
[2025-02-26] MEDS: PIPERACILLIN-TAZOB 3.375GM 100 ML IV SCH (16:42)
[2025-02-27] VITALS (7 sets, daily range): BP systolic 111–130; BP diastolic 75–102; PULSE 66–93; RESP 16–19; TEMP 97.4–98.2; O2SAT 94–99
[2025-02-27 06:43] LABS: Anion Gap 10 (5-15); Carbon Dioxide 22 mmol/L (20-31); Chloride 106 mmol/L (98-107); Potassium 3.9 mmol/L (3.5-5.1); Sodium 138 mmol/L (136-145)
[2025-02-27 06:49] LABS: BUN/Creatinine Ratio 8.9 (10.0-20.0)
[2025-02-27 06:53] LABS: Hematocrit 39.8 % (36.0-46.0); Hemoglobin 13.6 g/dL (12.2-16.2); Mean Corpuscular Hemoglobin 28.8 pg (28.0-32.0); Mean Corpuscular Volume 84.3 fL (80.0-100.0); Nucleated Red Blood Cells % 0.0 %
[2025-02-27 06:58] LABS: Blood Urea Nitrogen 7 mg/dL (9-23); Calcium 8.7 mg/dL (8.7-10.4); Glucose 120 mg/dL (74-106)
[2025-02-27] MEDS ORDERED: MORPHINE SULFATE INJ 2 MG/ml SYRG IV PRN (09:00)
[2025-02-27 11:05] LABS: Urine Protein, UAD Negative (Negative)
[2025-02-27] MEDS: OFLOXACIN OTIC(EAR) 0.3 % DROP 5ML RIGHT EAR SCH (11:13)
--- NOTE | 2025-02-27 14:05 | DVHPNRES ---
Progress Note Date Seen: Feb 27, 2025 Resident Creating Document: ANGELITO TRAN RESIDENT Medical Necessity Reason Pt with a Central, PICC or Fol: No Subjective Review of Systems This is a 24-year-old female with the past medical history of GERD, exercise- induced asthma who presented to the ED with the complaint of right ear pain. Patient mentions she has had right ear pain since 1 week along with diet patient has swelling and ear discharge. The patient describes the pain as a 9 on 10 in intensity, constant and radiating to the right jaw. It was accompanied by chills. The patient denies any fever. She was seen at the urgent care where she was given Augmentin, was later switched to cefdinir. Also took Tylenol and ibuprofen for the pain but it did not resolve. Patient also mentions that her she has mild hearing loss in the right ear and feels like it is blocked. She went to the urgent care yesterday and was asked to go to the ER. The patient denies any throat pain, headache or cough. Past medical history: GERD, exercise-induced asthma, syncopal episodes Past surgical history: None Social & Personal history: Lives at home with family Smoking: Denies Alcohol: Denies Drug use: Denies Allergies: No known allergies Patient seen and examined at bedside. Patient is alert and oriented to time, place person and responding to all questions. Eyes: No Pain, No Vision change, No Conjunctivae inflammation, No Eyelid inflammation, No Redness ENT: Ear pain, Ear discharge, No Nose pain, No Nose discharge, No Nose congestion, No Mouth pain, No Mouth swelling, No Throat pain, No Throat swelling Cardiovascular: No Chest Pain, No Palpitations, No Orthopnea, No Paroxysmal No Dyspnea, No Edema, No Lt Headedness Respiratory: No Cough, No Dry, No Shortness of breath, No SOB with exertion, No Wheezing, No Hemoptysis, No Pleuritic Pain, No Sputum Gastrointestinal: No Nausea, No Vomiting, No Abdominal Pain, No Diarrhea, No Constipation, No Melena, No Hematochezia Genitourinary: No Dysuria, No Frequency, No Incontinence, No Hematuria, No Retention 02/27- The patient was seen at bedside today. The patient mentioned that the pain in her right ear has reduced, but she started having mild pain in her left ear last night. Her nausea has also reduced. Vitals are stable and labs within range. Repeat sample for urine analysis was done which was unremarkable. Culture report from the ear discharge mentioned Gram-negative rods. Ofloxacin drops were added to the medication regimen. Objective vital signs Vital Sign Date Time Temp Pulse Resp B/P (MAP) Pulse Ox O2 Delivery O2 Flow Rate FiO2 02/27/25 12:39 98.2 67 18 117/85 (96) 96 98.2 02/27/25 08:00 Room Air* 0 21 Total Intake and Output 02/26/25 02/26/25 02/27/25 15:00 23:00 07:00 Intake Total 100 ml 2170 ml 500 ml Balance 100 ml 2170 ml 500 ml medications Current Medications Medications Dose Ordered Sig/Lila Route Start Time Stop Time Status Last Admin Dose Admin Sodium Chloride 1,000 ml @ 60 mls/hr [id number] IV 02/25/25 22:30 02/27/25 08:18 60 MLS/HR Acetaminophen/ Hydrocodone Bitart 1 tab Q4HP PRN PO 02/25/25 22:30 Ondansetron HCl 4 mg Q4HP PRN IV 02/25/25 22:30 02/26/25 10:42 4 MG Ofloxacin 5 drop BID EACH EAR 02/26/25 10:00 Cancel Ofloxacin 5 drop BID RIGHT EAR 02/26/25 10:00 UNV Neomycin/ Polymyxin/Bacitr/ Hydrocort 4 drop BID RIGHT EAR 02/26/25 10:00 UNV Piperacillin Sod/ Tazobactam Sod 100 ml @ 25 mls/hr Q6HR IV 02/26/25 18:00 02/27/25 12:00 25 MLS/HR Ciprofloxacin 200 ml @ 200 mls/hr Q8HR IV 02/26/25 14:00 02/27/25 05:02 200 MLS/HR Neomycin/ Polymyxin/ Dexamethasone 4 drop QID OP 02/26/25 18:00 03/01/25 18:01 02/27/25 10:51 4 DROP Acetaminophen 650 mg Q6HP PRN PO 02/26/25 14:45 02/26/25 23:42 650 MG Ofloxacin 4 drop Q6HP RIGHT EAR 02/27/25 12:00 02/27/25 11:13 4 DROP Morphine Sulfate 1 mg Q6HP PRN IV 02/27/25 09:00 Examination General Appearance: Cooperative. Well developed. Well nourished. NAD. Ear examination: right ear- The patient has pain on pulling the pinna, on otoscopy,right ear- the internal auditory canal looks red and is full of discharge and crusted discharge. Mild tenderness in the right mastoid area. Head Exam: Normal inspection Neck Exam: Normal inspection. Non-tender. Normal alignment Pulmonary/Respiratory: Chest non-tender. Clear bilateral breath sounds, no crackles, no wheezing. Cardiovascular/Chest: Regular rate and rhythm. No murmurs. No JVD. Peripheral Pulses: 2+ Radial (R). 2+ Radial (L). 2+ Pedal (R). 2+ Pedal (L) Abdominal Exam: Normal bowel sounds. Soft. normal abdomen, no visible veins, Nontender. No hepatospenomegaly. No masses Ankle Exam: Negative ankle edema Lower extremities: Negative lower extremity edema Neuro/Mental Status: A&O x4. Coherent. Thoughts/Psych: Normal thought pattern. Appropriate mood and affect. Good judgement and insight Skin Exam: Normal inspection. Normal color. Warm. Dry Nurses was a body straightener during the examination laboratory and microbiology Laboratory Tests 02/27/25 05:31 Test 02/27/25 05:31 Range/Units Serum Glucose 120 H 74-106 mg/dL Microbiology Date/Time Source Procedure Growth Status 02/26/25 13:00 Ear Right Gram Stain - Final Resulted 02/26/25 13:00 Ear Right Wound Culture - Preliminary Resulted 02/26/25 03:29 Nose MRSA Screen - Final Complete 02/25/25 17:23 Blood Blood Culture - Preliminary NO GROWTH AFTER 24 HOURS OF INCUBATION. Resulted Labs and/or images reviewed: Labs reviewed by me, Image(s) reviewed by me Problem List/Assessment/Plan Problem List/Assessment/Plan #Otitis externa, right ear #Acute mastoiditis, right ear #Right ear pain due to above #Rapid Group a strep antigen positive -CT head showed small right mastoid effusion -IV Zosyn, IV ciprofloxacin -IVF -neomycin/dexamethasone ear drops -blood culture, culture of ear discharge -monitor for systemic signs of sepsis #Exercise induced asthma -continue home medication #History of syncopal episodes, likely vasovagal with repeated hospitalization #Obesity class 3, BMI 40.1 -recommend lifestyle modification PUD prophylaxis: Not indicated DVT prophylaxis: Not indicated Goals of care: Full code, discussed for >22 minutes Plan discussed with patient Plan discussed with Dr. Vargas Plan discussed with: Patient My Orders My Orders Orders - ANGELITO TRAN Procedure Category Date Status Time Ofloxacin (Otic) PHA 02/27/25 In Process (Floxin Otic) 12:00 Date of Service: Feb 27, 2025 Billing Provider: TALIA BECERRIL MD Common Visit Codes: [id number] INP/OBS CARE(HIGH) ANGELITO TRAN Feb 27, 2025 14:05 TALIA BECERRIL MD Mar 02, 2025 01:26
[2025-02-27] MEDS: NEOMYCIN-POLYM-HC 1% OTIC(EAR) SOLN 10ML LEFT EAR SCH (22:12)
[2025-02-27] MEDS: OFLOXACIN OTIC(EAR) 0.3 % DROP 5ML LEFT EAR SCH (22:29)
[2025-02-28 01:00] VITALS: BP 119/80; PULSE 70; RESP 16; TEMP 98.1; O2SAT 95
[2025-02-28 05:00] VITALS: BP 117/72; PULSE 80; RESP 15; TEMP 97.8; O2SAT 97
[2025-02-28 05:31] LABS: Hemoglobin 14.4 g/dL (12.2-16.2)
[2025-02-28 05:33] LABS: Hematocrit 41.7 % (36.0-46.0); Mean Corpuscular Hemoglobin 29.1 pg (28.0-32.0); Mean Corpuscular Volume 84.2 fL (80.0-100.0); Nucleated Red Blood Cells % 0.2 %
[2025-02-28 05:34] LABS: Anion Gap 11 (5-15); Carbon Dioxide 22 mmol/L (20-31); Chloride 106 mmol/L (98-107); Potassium 3.8 mmol/L (3.5-5.1); Sodium 139 mmol/L (136-145)
[2025-02-28 05:35] LABS: Calcium 9.1 mg/dL (8.7-10.4)
[2025-02-28 05:40] LABS: BUN/Creatinine Ratio 7.8 (10.0-20.0)
[2025-02-28 05:44] LABS: Blood Urea Nitrogen 7 mg/dL (9-23); Glucose 115 mg/dL (74-106)
[2025-02-28 09:30] VITALS: BP 117/71; PULSE 65; RESP 16; TEMP 97.5; O2SAT 97
--- NOTE | 2025-02-28 11:47 | DVHPNRES ---
Progress Note Date Seen: Feb 28, 2025 Resident Creating Document: ANGELITO TRAN RESIDENT Medical Necessity Reason Pt with a Central, PICC or Fol: No Subjective Review of Systems This is a 24-year-old female with the past medical history of GERD, exercise- induced asthma who presented to the ED with the complaint of right ear pain. Patient mentions she has had right ear pain since 1 week along with diet patient has swelling and ear discharge. The patient describes the pain as a 9 on 10 in intensity, constant and radiating to the right jaw. It was accompanied by chills. The patient denies any fever. She was seen at the urgent care where she was given Augmentin, was later switched to cefdinir. Also took Tylenol and ibuprofen for the pain but it did not resolve. Patient also mentions that her she has mild hearing loss in the right ear and feels like it is blocked. She went to the urgent care yesterday and was asked to go to the ER. The patient denies any throat pain, headache or cough. Past medical history: GERD, exercise-induced asthma, syncopal episodes Past surgical history: None Social & Personal history: Lives at home with family Smoking: Denies Alcohol: Denies Drug use: Denies Allergies: No known allergies Patient seen and examined at bedside. Patient is alert and oriented to time, place person and responding to all questions. Eyes: No Pain, No Vision change, No Conjunctivae inflammation, No Eyelid inflammation, No Redness ENT: Ear pain, Ear discharge, No Nose pain, No Nose discharge, No Nose congestion, No Mouth pain, No Mouth swelling, No Throat pain, No Throat swelling Cardiovascular: No Chest Pain, No Palpitations, No Orthopnea, No Paroxysmal No Dyspnea, No Edema, No Lt Headedness Respiratory: No Cough, No Dry, No Shortness of breath, No SOB with exertion, No Wheezing, No Hemoptysis, No Pleuritic Pain, No Sputum Gastrointestinal: No Nausea, No Vomiting, No Abdominal Pain, No Diarrhea, No Constipation, No Melena, No Hematochezia Genitourinary: No Dysuria, No Frequency, No Incontinence, No Hematuria, No Retention 02/27- The patient was seen at bedside today. The patient mentioned that the pain in her right ear has reduced, but she started having mild pain in her left ear last night. Her nausea has also reduced. Vitals are stable and labs within range. Repeat sample for urine analysis was done which was unremarkable. Culture report from the ear discharge mentioned Gram-negative rods. Ofloxacin drops were added to the medication regimen. The patient was seen at bedside today. She mentioned that her pain has reduced but she still feels that her ears are clogged and she can not hear in the right ear. She does not complain of any nausea. Vitals have remained stable and labs within range. We will continue the same medication for the patient with some IV pain medication. Possible DC tomorrow. Objective vital signs Vital Sign Date Time Temp Pulse Resp B/P (MAP) Pulse Ox O2 Delivery O2 Flow Rate FiO2 02/28/25 09:30 97.5 65 16 117/71 (86) 97 97.5 02/28/25 01:00 Room Air* 0 21 Total Intake and Output 02/27/25 02/27/25 02/28/25 15:00 23:00 07:00 Intake Total 100 ml 1420 ml 650 ml Balance 100 ml 1420 ml 650 ml medications Current Medications Medications Dose Ordered Sig/Lila Route Start Time Stop Time Status Last Admin Dose Admin Sodium Chloride 1,000 ml @ 60 mls/hr [id number] IV 02/25/25 22:30 02/28/25 01:00 60 MLS/HR Acetaminophen/ Hydrocodone Bitart 1 tab Q4HP PRN PO 02/25/25 22:30 Ondansetron HCl 4 mg Q4HP PRN IV 02/25/25 22:30 02/26/25 10:42 4 MG Ofloxacin 5 drop BID EACH EAR 02/26/25 10:00 Cancel Ofloxacin 5 drop BID RIGHT EAR 02/26/25 10:00 UNV Neomycin/ Polymyxin/Bacitr/ Hydrocort 4 drop BID RIGHT EAR 02/26/25 10:00 UNV Piperacillin Sod/ Tazobactam Sod 100 ml @ 25 mls/hr Q6HR IV 02/26/25 18:00 02/28/25 11:30 25 MLS/HR Ciprofloxacin 200 ml @ 200 mls/hr Q8HR IV 02/26/25 14:00 02/28/25 05:09 200 MLS/HR Neomycin/ Polymyxin/ Dexamethasone 4 drop QID OP 02/26/25 18:00 03/01/25 18:01 02/28/25 05:19 4 DROP Acetaminophen 650 mg Q6HP PRN PO 02/26/25 14:45 02/26/25 23:42 650 MG Ofloxacin 4 drop Q6HP RIGHT EAR 02/27/25 12:00 02/28/25 11:30 4 DROP Morphine Sulfate 1 mg Q6HP PRN IV 02/27/25 09:00 Neomycin/ Polymyxin/Bacitr/ Hydrocort 4 drop BID LEFT EAR 02/27/25 22:00 02/28/25 10:36 4 DROP Ofloxacin 4 drop BID LEFT EAR 02/27/25 22:00 02/28/25 09:39 4 DROP Examination General Appearance: Cooperative. Well developed. Well nourished. NAD. Ear examination: right ear- The patient has pain on pulling the pinna, on otoscopy,right ear- the internal auditory canal looks red and is full of discharge and crusted discharge. Mild tenderness in the right mastoid area. left ear-mild erythema with minimal discharge Head Exam: Normal inspection Neck Exam: Normal inspection. Non-tender. Normal alignment Pulmonary/Respiratory: Chest non-tender. Clear bilateral breath sounds, no crackles, no wheezing. Cardiovascular/Chest: Regular rate and rhythm. No murmurs. No JVD. Peripheral Pulses: 2+ Radial (R). 2+ Radial (L). 2+ Pedal (R). 2+ Pedal (L) Abdominal Exam: obese abdomen, Normal bowel sounds. Soft. no visible veins, Nontender. No hepatosplenomegaly. No masses Ankle Exam: Negative ankle edema Lower extremities: Negative lower extremity edema Neuro/Mental Status: A&O x4. Coherent. Thoughts/Psych: Normal thought pattern. Appropriate mood and affect. Good judgement and insight Skin Exam: Normal inspection. Normal color. Warm. Dry Nurses was a reference library assistant during the examination laboratory and microbiology Laboratory Tests 02/28/25 02:51 Test 02/28/25 02:51 Range/Units Serum Glucose 115 H 74-106 mg/dL Microbiology Date/Time Source Procedure Growth Status 02/26/25 13:00 Ear Right Gram Stain - Final Resulted 02/26/25 13:00 Ear Right Wound Culture - Preliminary Resulted 02/26/25 03:29 Nose MRSA Screen - Final Complete 02/25/25 17:23 Blood Blood Culture - Preliminary NO GROWTH AFTER 48 HOURS OF INCUBATION. Resulted Labs and/or images reviewed: Labs reviewed by me, Image(s) reviewed by me Problem List/Assessment/Plan Problem List/Assessment/Plan # Otitis externa, right ear-improving # Acute mastoiditis, right ear # Right ear pain due to above # Rapid Group a strep antigen positive -CT head showed small right mastoid effusion -IV Zosyn, IV ciprofloxacin -IVF -neomycin/dexamethasone ear drops -culture of ear discharge showed moderate growth of gram negative rods -monitor for systemic signs of sepsis -patient is currently on IV pain medications morphine as needed -possible DC tomorrow -pending cultures # Exercise induced asthma -continue home medication # History of syncopal episodes, likely vasovagal with repeated hospitalization # Morbid Obesity, BMI 40.1 -recommend lifestyle modification PUD prophylaxis: Not indicated DVT prophylaxis: Not indicated Goals of care: Full code, discussed with the patient for 20 minutes Plan discussed with patient Plan discussed with Dr. Powell Plan discussed with: Patient Addendum Addendum Addendum I was physically present for the nix portions of the service provided to patient by THE RESIDENT. I have reviewed the documentation, discussed the case with resident and agree with the resident's documentation except as noted. Also the patient's clinical case was discussed with the patient's nurse. This medical document was created using an electronic medical record system with computerized dictation system. Although this document has been carefully reviewed, there might still be some phonetic and typographical errors. These areas are purely typographical due to imperfections of the software programs, and do not reflect any compromise in the patient's medical care. Late signature. Date of Service: Feb 28, 2025 Billing Provider: KAYE POWELL MD Common Visit Codes: [id number] INP/OBS CARE(HIGH) Secondary Visit Codes: 76184-[id number] CARE PLAN 30 MINUTES (20 minutes) ANGELITO TRAN RESIDENT Feb 28, 2025 11:47 CHRISTA RODRIGUEZ RESIDENT Feb 28, 2025 14:49 KAYE POWELL MD Mar 01, 2025 05:59
[2025-02-28 12:30] VITALS: BP 118/75; PULSE 89; RESP 16; TEMP 98.1; O2SAT 99
[2025-02-28 17:30] VITALS: BP 90/57; PULSE 93; RESP 16; TEMP 98.1; O2SAT 98
[2025-02-28 21:00] VITALS: BP 113/62; PULSE 99; RESP 16; TEMP 97.7; O2SAT 96
[2025-02-28] MEDS: NEOMYCIN-POLYM-HC 1% OTIC(EAR) SOLN 10ML OT SCH (21:34)
[2025-02-28] MEDS: CIPROFLOXACIN 400MG/200ML 200 ML IV SCH (23:59)
[2025-03-01 01:00] VITALS: BP 110/60; PULSE 110; RESP 17; TEMP 97.4; O2SAT 96
[2025-03-01] MEDS ORDERED: CIPROFLOXACIN 400MG/200ML 200 ML IV SCH (01:00)
[2025-03-01 05:00] VITALS: BP 114/73; PULSE 89; RESP 16; TEMP 97.9; O2SAT 97
[2025-03-01 05:44] LABS: Hematocrit 41.2 % (36.0-46.0); Hemoglobin 14.1 g/dL (12.2-16.2); Mean Corpuscular Hemoglobin 29.0 pg (28.0-32.0); Mean Corpuscular Volume 84.9 fL (80.0-100.0); Nucleated Red Blood Cells % 0.1 %
[2025-03-01 05:50] LABS: Anion Gap 10 (5-15); Carbon Dioxide 24 mmol/L (20-31); Potassium 4.2 mmol/L (3.5-5.1); Sodium 141 mmol/L (136-145)
[2025-03-01 05:52] LABS: Calcium 8.7 mg/dL (8.7-10.4)
[2025-03-01 05:53] LABS: Chloride 107 mmol/L (98-107)
[2025-03-01 05:57] LABS: BUN/Creatinine Ratio 12.2 (10.0-20.0); Blood Urea Nitrogen 12 mg/dL (9-23)
--- NOTE | 2025-03-01 06:00 | DVHPN2 ---
Subjective Still complaining of ear pain; on and off; no ear discharge reported Reviewed: Care Plan, H&P, Labs, Medications, Previous Orders, Radiology Changes from previous H/P or p: Changes Objective Vitals Vital Signs Date Time Temp Pulse Resp B/P (MAP) Pulse Ox O2 Delivery O2 Flow Rate FiO2 03/01/25 01:00 97.4 110 17 110/60 (77) 96 97.4 02/28/25 20:00 Room Air* 0 21 Intake/Output Intake and Output 03/01/25 07:00 Intake Total 800 ml Balance 800 ml IV Total 800 ml # Voids 4 # Bowel Movements 1 General Appearance: Alert, Oriented X3, Cooperative, No acute distress HEENT: Atraumatic, Other (Mild right ear tenderness; no visualization of the tympanic membrane; crusted discharge; mild erythema) Lungs: Clear to auscultation, Normal air movement Cardiovascular: Regular rate, Normal S1, Normal S2, No murmurs Abdomen: Normal bowel sounds, Soft, No tenderness Neuro: Normal speech, Cranial nerves 3-12 NL Psych/Mental Status: Mental status NL, Mood NL Medications Current Medications Medications Dose Ordered Sig/Lila Route Start Time Stop Time Status Last Admin Dose Admin Sodium Chloride 1,000 ml @ 60 mls/hr [id number] IV 02/25/25 22:30 02/28/25 01:00 60 MLS/HR Acetaminophen/ Hydrocodone Bitart 1 tab Q4HP PRN PO 02/25/25 22:30 Ondansetron HCl 4 mg Q4HP PRN IV 02/25/25 22:30 02/26/25 10:42 4 MG Ofloxacin 5 drop BID EACH EAR 02/26/25 10:00 Cancel Ofloxacin 5 drop BID RIGHT EAR 02/26/25 10:00 UNV Neomycin/ Polymyxin/Bacitr/ Hydrocort 4 drop BID RIGHT EAR 02/26/25 10:00 UNV Piperacillin Sod/ Tazobactam Sod 100 ml @ 25 mls/hr Q6HR IV 02/26/25 18:00 03/01/25 01:15 25 MLS/HR Acetaminophen 650 mg Q6HP PRN PO 02/26/25 14:45 02/26/25 23:42 650 MG Morphine Sulfate 1 mg Q6HP PRN IV 02/27/25 09:00 Neomycin/ Polymyxin/Bacitr/ Hydrocort 4 drop BID OT 02/28/25 22:00 03/06/25 10:01 02/28/25 21:34 4 DROP Ciprofloxacin 200 ml @ 200 mls/hr Q8H IV 03/01/25 01:00 02/28/25 23:59 200 MLS/HR Laboratory Results Laboratory Tests 03/01/25 04:59 Chemistry Test 03/01/25 04:59 Calcium Level 8.7 mg/dL (8.7-10.4) Urinalysis Test 02/26/25 10:00 02/27/25 08:00 Urine Mucus Few (None Seen) Urine Color Light-yellow (Yellow) Urine Clarity Clear (Clear) Urine pH 6.5 (5.0-9.0) Urine Specific [place] 1.011 (1.001-1.035) Urine Protein Negative (Negative) Urine Ketones Negative (Negative) Urine Blood 2+ /uL (Negative) H Urine Nitrite Negative (Negative) Urine Bilirubin Negative (Negative) Urine Urobilinogen Normal mg/dL (Negative) Urine Leukocyte Esterase Negative /uL (Negative) Urine RBC 6 /hpf (0 - 4) Urine Microscopic WBC 1 /HPF (0-5) Urine Squamous Epithelial Cells Few /hpf (<5) Urine Bacteria Few /hpf (None Seen) H Urine Glucose Normal mg/dL (Normal) Microbiology Microbiology Date/Time Source Procedure Growth Status 02/26/25 13:00 Ear Right Gram Stain - Final Resulted 02/26/25 13:00 Wound Culture - Preliminary Pseudomonas aeruginosa Resulted 02/26/25 03:29 Nose MRSA Screen - Final Complete 02/25/25 17:23 Blood Blood Culture - Preliminary NO GROWTH AFTER 72 HOURS OF INCUBATION. Resulted Labs and/or images reviewed: Labs reviewed by me, Image(s) reviewed by me Assessment/Plan Assessment/Plan Covering: E coli and Pseudomonas aeruginosa right otitis externa and acute mastoiditis Right ear pain due to infection Exercised induced asthma; not in exacerbation Suspected vasovagal syncopal episodes; no recurrence Morbid obesity Ear discharge cultures showed E coli and Pseudomonas aeruginosa; both IV antibiotics were discontinued based on susceptibility; EKG was done that showed within normal limit QTc interval so oral levofloxacin was started; to continue antibiotics eardrops Reviewed available lab work, available cultures results, and imaging study Continue pain management as indicated Counseled the patient on the importance of adopting healthy lifestyle with diet and exercise in order to lose weight Continue monitoring To be discharge tomorrow as IV antibiotics were discontinued and started on new oral antibiotic based on ear discharge cultures susceptibility Late Entry. This medical document was created using an electronic medical record system with computerized dictation system. Although this document has been carefully reviewed, there might still be some phonetic and typographical errors. These areas are purely typographical due to imperfections of the software programs, and do not reflect any compromise in the patient's medical care. Plan discussed with: Patient, Other (Nurse) Date of Service: Mar 01, 2025 Billing Provider: KAYE POWELL MD Common Visit Codes: [id number] INP/OBS CARE(HIGH) KAYE POWELL MD Mar 01, 2025 06:00
[2025-03-01 06:09] LABS: Glucose 121 mg/dL (74-106)
[2025-03-01 09:30] VITALS: BP 120/64; PULSE 77; RESP 16; TEMP 98.6; O2SAT 98
[2025-03-01] MEDS: PANTOPRAZOLE 40 MG TAB PO ONE (11:40)
[2025-03-01 12:30] VITALS: BP 117/80; PULSE 98; RESP 16; TEMP 97.7; O2SAT 99
[2025-03-01] MEDS: levoFLOXacin 500 MG TAB PO ONE (14:36)
[2025-03-01 17:20] VITALS: BP 126/78; PULSE 93; RESP 16; TEMP 97.3; O2SAT 100
[2025-03-01 21:00] VITALS: BP 122/67; PULSE 89; RESP 16; TEMP 97.9; O2SAT 98
[2025-03-02 01:00] VITALS: BP 105/62; PULSE 85; RESP 16; TEMP 98.4; O2SAT 98
[2025-03-02 05:00] VITALS: BP 104/62; PULSE 79; RESP 16; TEMP 98.2; O2SAT 97
[2025-03-02] MEDS: PANTOPRAZOLE 40 MG TAB PO SCH (05:04)
[2025-03-02 05:34] LABS: Mean Corpuscular Volume 84.4 fL (80.0-100.0); Nucleated Red Blood Cells % 0.1 %
[2025-03-02 05:39] LABS: Hematocrit 43.0 % (36.0-46.0); Hemoglobin 14.6 g/dL (12.2-16.2); Mean Corpuscular Hemoglobin 28.6 pg (28.0-32.0)
[2025-03-02 05:48] LABS: Alanine Aminotransferase 28 U/L (7-40); Albumin 4.4 g/dL (3.2-4.8); Alkaline Phosphatase 78 U/L (46-116); Anion Gap 9 (5-15); BUN/Creatinine Ratio 11.3 (10.0-20.0); Calcium 9.2 mg/dL (8.7-10.4); Carbon Dioxide 24 mmol/L (20-31); Chloride 105 mmol/L (98-107); Glucose 104 mg/dL (74-106); Potassium 4.3 mmol/L (3.5-5.1); Sodium 138 mmol/L (136-145); Total Protein 7.2 g/dL (5.7-8.2)
[2025-03-02 06:03] LABS: Bilirubin, Total 0.3 mg/dL (0.2-1.0); Blood Urea Nitrogen 9 mg/dL (9-23)
--- NOTE | 2025-03-02 08:16 | ECG ---
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
[2025-03-02 09:00] VITALS: BP 108/58; PULSE 76; RESP 17; TEMP 98; O2SAT 98
[2025-03-02] MEDS: levoFLOXacin 500 MG TAB PO SCH (09:08)
[2025-03-02] MEDS ORDERED: COR10OTS OT (11:38)
[2025-03-02] MEDS ORDERED: LEVO500T91 PO (11:38)
[2025-03-02 13:00] VITALS: BP 124/80; PULSE 87; RESP 17; TEMP 98.1; O2SAT 98
[2025-03-02 13:36] VITALS: BP 124/80; PULSE 87; RESP 16; TEMP 36.7; O2SAT 98
--- NOTE | 2025-03-02 13:45 | DVHDSRES ---
Discharge Summary Date of Admission Resident Creating Document: ANGELITO TRAN RESIDENT Feb 25, 2025 at 22:24 Date of Discharge: Mar 02, 2025 Admitting Diagnosis right ear pain, possible mastoiditis Labs/Diagnostic Data: Laboratory Results Test 03/02/25 04:50 02/27/25 08:00 02/26/25 10:00 02/26/25 05:20 White Blood Count 10.0 10^3/uL (4.4-10.8) Red Blood Count 5.10 10^6/uL (4.0-5.20) Hemoglobin 14.6 g/dL (12.2-16.2) Hematocrit 43.0 % (36.0-46.0) Mean Corpuscular Volume 84.4 fL (80.0-100.0) Mean Corpuscular Hemoglobin 28.6 pg (28.0-32.0) Mean Corpuscular Hemoglobin Concent 33.9 g/dL (32.0-36.0) Red Cell Distribution Width 14.2 % (11.8-14.3) Platelet Count 558 10^3/uL (140-450) Mean Platelet Volume 7.5 fL (6.9-10.8) Neutrophils (%) (Auto) 54.3 % (37.0-80.0) Lymphocytes (%) (Auto) 34.9 % (10.0-50.0) Monocytes (%) (Auto) 7.4 % (0.0-12.0) Eosinophils (%) (Auto) 2.9 % (0.0-7.0) Basophils (%) (Auto) 0.5 % (0.0-2.0) Neutrophils # (Auto) 5.4 10 ^3/uL (1.6-8.6) Lymphocytes # (Auto) 3.5 10 ^3/uL (0.4-5.4) Monocytes # (Auto) 0.7 10 ^3/uL (0-1.3) Eosinophils # (Auto) 0.3 10 ^3/uL (0-0.8) Basophils # (Auto) 0.1 10 ^3/uL (0-0.2) Nucleated Red Blood Cells 0.1 % Sodium Level 138 mmol/L (136-145) Potassium Level 4.3 mmol/L (3.5-5.1) Chloride Level 105 mmol/L (98-107) Carbon Dioxide Level 24 mmol/L (20-31) Anion Gap 9 (5-15) Blood Urea Nitrogen 9 mg/dL (9-23) Creatinine 0.80 mg/dL (0.550-1.02) Glomerular Filtration Rate Calc 105 mL/min (>90) BUN/Creatinine Ratio 11.3 (10.0-20.0) Serum Glucose 104 mg/dL (74-106) Calcium Level 9.2 mg/dL (8.7-10.4) Total Bilirubin 0.3 mg/dL (0.2-1.0) Aspartate Amino Transferase (AST) 17 U/L (13-40) Alanine Aminotransferase (ALT) 28 U/L (7-40) Alkaline Phosphatase 78 U/L (46-116) Total Protein 7.2 g/dL (5.7-8.2) Albumin 4.4 g/dL (3.2-4.8) Urine Color Light-yellow (Yellow) Urine Clarity Clear (Clear) Urine pH 6.5 (5.0-9.0) Urine Specific [place] 1.011 (1.001-1.035) Urine Protein Negative (Negative) Urine Ketones Negative (Negative) Urine Blood 2+ /uL (Negative) Urine Nitrite Negative (Negative) Urine Bilirubin Negative (Negative) Urine Urobilinogen Normal mg/dL (Negative) Urine Leukocyte Esterase Negative /uL (Negative) Urine RBC 6 /hpf (0 - 4) Urine Microscopic WBC 1 /HPF (0-5) Urine Squamous Epithelial Cells Few /hpf (<5) Urine Bacteria Few /hpf (None Seen) Urine Glucose Normal mg/dL (Normal) Urine Mucus Few (None Seen) SARS-CoV-2 Antigen (Rapid) Negative (NEGATIVE) Test 02/26/25 03:29 02/26/25 00:18 02/25/25 17:23 Group A Streptococcus Rapid Positive Prothrombin Time 10.5 sec (9.3-11.8) Prothrombin Time INR 0.99 (0.9-1.15) Thyroid Stimulating Hormone (TSH) 0.92 uIU/mL (0.55-4.78) Beta HCG, Quantitative < 0.0 mIU/mL (1.5-4.2) Lactic Acid Level 0.7 mmol/L (0.4-2.0) Other Laboratory Tests 03/02/25 04:50 Brief Hx & Hospital Course: This is a 24-year-old female with the past medical history of GERD, exercise- induced asthma who presented to the ED with the complaint of right ear pain. Patient mentions she has had right ear pain since 1 week along with diet patient has swelling and ear discharge. The patient describes the pain as a 9 on 10 in intensity, constant and radiating to the right jaw. It was accompanied by chills. The patient denies any fever. She was seen at the urgent care where she was given Augmentin, was later switched to cefdinir. Also took Tylenol and ibuprofen for the pain but it did not resolve. Patient also mentions that her she has mild hearing loss in the right ear and feels like it is blocked. She went to the urgent care yesterday and was asked to go to the ER. The patient denies any throat pain, headache or cough. On admission, head CT was done which showed small effusion in the right mastoid. Blood culture and culture of the ear discharge were sent and IV Antibiotics were started for the patient along with eardrops. The patient complained of nausea which was resolved with some medications. Patient also complained of left ear pain with no discharge. Blood culture came back negative and culture of the ear discharged from the right ear which grew Pseudomonas and E coli. She was switched from IV antibiotics to oral levofloxacin and discharged home oral antibiotics in a stable condition. Counseled the patient on the importance of adopting healthy lifestyle with diet and exercise in order to lose weight. Medications and recommendations were explained to the patient and she demonstrated understanding of the same. All questions were answered and all concerns were addressed. Past medical history: GERD, exercise-induced asthma, syncopal episodes Past surgical history: None Social & Personal history: Lives at home with family Smoking: Denies Alcohol: Denies Drug use: Denies Allergies: No known allergie General Appearance: Cooperative. Well developed. Well nourished. NAD. Ear examination: right ear- The patient has pain on pulling the pinna, on otoscopy,right ear- the internal auditory canal looks red and some discharge. Mild tenderness in the right mastoid area. left ear-mild erythema with minimal discharge Head Exam: Normal inspection Neck Exam: Normal inspection. Non-tender. Normal alignment Pulmonary/Respiratory: Chest non-tender. Clear bilateral breath sounds, no crackles, no wheezing. Cardiovascular/Chest: Regular rate and rhythm. No murmurs. No JVD. Peripheral Pulses: 2+ Radial (R). 2+ Radial (L). 2+ Pedal (R). 2+ Pedal (L) Abdominal Exam: obese abdomen, Normal bowel sounds. Soft. no visible veins, Nontender. No hepatosplenomegaly. No masses Ankle Exam: Negative ankle edema Lower extremities: Negative lower extremity edema Neuro/Mental Status: A&O x4. Coherent. Thoughts/Psych: Normal thought pattern. Appropriate mood and affect. Good judgement and insight Skin Exam: Normal inspection. Normal color. Warm. Dry Nurses was a telesales specialist during the examination Operations or Procedures 1.PROCEDURE(s): HWOCT - HEAD WITHOUT CONTRAST REASON: L ear pain, L mastoid tenderness, r/o mastoiditis ORDER NUMBER(s): [id number], ACCESSION NUMBER(s): [id number] IMPRESSION: No intracranial hemorrhage or mass effect. Small right mastoid effusion. 2.PROCEDURE(s): EKG - ELECTROCARDIGRAM ORDER NUMBER(s): [id number], ACCESSION NUMBER(s): [id number] Measurements Intervals [place] Rate: 86 P: 7 ME: 152 QRS: 28 QRSD: 87 T: 28 QT: 361 QTc: 432 Interpretive Statements Sinus rhythm Condition at Discharge: Fair Final Diagnosis/Problems List Acute otitis externa , right ear, malignant possible, E coli and Pseudomonas aeruginosa Acute mastoiditis, right ear Right ear pain due to above Rapid Group a strep antigen positive Exercise induced asthma, not in exacerbation History of syncopal episodes, likely vasovagal with repeated hospitalization Morbid Obesity, BMI 40.1 Discharge Disposition: Home Discharge Instruct/Medications Diet: Regular Activity: No Restrictions, As Tolerated Follow Up/Referral: PCP and DC clnic Medications: Levofloxacin daily for 7 days and eardrops 3 times daily for 7 days rest as per EMR Scheduled Albuterol Sulfate (Albuterol Sulfate Hfa), 108 MCG IN PRN, (Reported) Budesonide (Inhalation) (Budesonide), Unknown Dose IN BID, (Reported) Levofloxacin Hemihydrate (Levaquin 500 Mg), 500 MG PO DAILY [id number]-Aw (Otic) (Cortisporin Otic Soln), 4 DROP OT TID Nitrofurantoin Monohydrate Mac (Macrobid), 100 MG PO BID Discharge Statement: "Patient was advised to return to the ER or call 911 if any headaches, dizziness, shortness of breath, chest pain, abdominal pain, bleeding, fevers, or worsening of medical condition. Patient was counseled about treatment plan, medications, possible side effects, patientverbalized understanding. All questions were answered to the best of my ability. This discharge took greater then 30 minutes in planning, reviewing documentation, counseling the patient, and discussing with other team members." ASSESSMENT ASSESSMENT Hospital Course This is a 24-year-old female with the past medical history of GERD, exercise- induced asthma who presented to the ED with the complaint of right ear pain. Patient mentions she has had right ear pain since 1 week along with diet patient has swelling and ear discharge. The patient describes the pain as a 9 on 10 in intensity, constant and radiating to the right jaw. It was accompanied by chills. The patient denies any fever. She was seen at the urgent care where she was given Augmentin, was later switched to cefdinir. Also took Tylenol and ibuprofen for the pain but it did not resolve. Patient also mentions that her she has mild hearing loss in the right ear and feels like it is blocked. She went to the urgent care yesterday and was asked to go to the ER. The patient denies any throat pain, headache or cough. On admission, head CT was done which showed small effusion in the right mastoid. Blood culture and culture of the ear discharge were sent and IV Antibiotics were started for the patient along with eardrops. The patient complained of nausea which was resolved with some medications. Patient also complained of left ear pain with no discharge. Blood culture came back negative and culture of the ear discharged from the right ear which grew Pseudomonas and E coli. She was switched from IV antibiotics to oral levofloxacin and discharged home in a stable condition. Medications and recommendations were explained to the patient and she demonstrated understanding of the same. All questions were answered and all concerns were addressed. Assessment # Otitis externa, right ear-, E coli and Pseudomonas aeruginosa # Acute mastoiditis, right ear # Right ear pain due to above # Rapid Group a strep antigen positive # Exercise induced asthma # History of syncopal episodes, likely vasovagal # Morbid Obesity, BMI 40.1 Date of Service: Mar 02, 2025 Billing Provider: TALIA BECERRIL MD Common Visit Codes: 22526-LEQ/OBS DISCH DAY >30min ANGELITO TRAN RESIDENT Mar 02, 2025 13:45 TALIA BECERRIL MD Mar 03, 2025 16:17
== END 2025-03-02 15:48 | disposition home or self-care (01) | DRG 153 ==
LOC: ER 16:18 → OVERFLOW 22:24 → CENTRAL 23:40
PROVIDERS: ADMIT Student in an Organized Health Care Education/Training Program; ATTEND Student in an Organized Health Care Education/Training Program
DX: H70.001 Acute mastoiditis without complications, right ear (principal); Z68.41 Body mass index [BMI] 40.0-44.9, adult; H60.91 Unspecified otitis externa, right ear; H60.21 Malignant otitis externa, right ear; J45.990 Exercise induced bronchospasm; Z20.822 Contact with and (suspected) exposure to COVID-19; K21.9 Gastro-esophageal reflux disease without esophagitis; E66.01 Morbid (severe) obesity due to excess calories; B96.5 Pseudomonas (aeruginosa) (mallei) (pseudomallei) as the cause of diseases classified elsewhere; B96.20 Unspecified Escherichia coli [E. coli] as the cause of diseases classified elsewhere; J02.0 Streptococcal pharyngitis
CPT/HCPCS: 36415; 70450; 80048; 80053; 81001; 83605; 84443; 84702; 85025; 85610; 87040; 87077; 87081; 87186; 87205; 87426; 87880; 93005; 96365; G0378; J1885; J2405; J2543; J7060